=== PATIENT | female | born 1955 ===

== ENCOUNTER 2017-05-17 15:09 | Inpatient (IN) | payer MEDICAID, OTHER ==
[~2017-05-17] VITALS: Ht 152.4 cm; Wt 99.4 kg
[2017-05-17] MEDS ORDERED: SODIUM CHLORIDE 0.9% 1,000 ML IV ONE (15:18)
[2017-05-17] MEDS ORDERED: SODIUM CHLORIDE FLUSH 10ML SYR IVF ONE (15:30)
[2017-05-17] MEDS ORDERED: SODIUM CHLORIDE 0.9% 1,000ML IVBOLUS ONE ×2 (15:30→16:30)
[2017-05-17 15:45] LABS: BASOPHILS # (AUTO) 0.02 x10^3/uL (0-0.1); BASOPHILS % (AUTO) 0 % (0-1); EOSINOPHILS % (AUTO) 0 % (1-7); LYMPHOCYTES # (AUTO) 0.88 x10^3/uL (1-3.4); LYMPHOCYTES % (AUTO) 16 % (22-44); MD NO; MEAN CORPUSCULAR HEMOGLOBIN 26.9 pg (27.0-34.8); MEAN CORPUSCULAR HGB CONC 31.7 g/dL (32.4-35.8); MEAN PLATELET VOLUME 8.2 fL (7.4-10.4); MONOCYTES # (AUTO) 0.83 x10^3/uL (0.2-0.8); MONOCYTES % (AUTO) 15 % (2-9); NEUTROPHILS # (AUTO) 3.92 x10^3/uL (1.8-6.8); NEUTROPHILS % (AUTO) 69 % (42-75); PLATELET COUNT 125 x10^3/uL (130-400); RED BLOOD COUNT 3.82 x10^6/uL (3.82-5.3)
[2017-05-17 15:52] LABS: INTERNATIONAL NORMALIZED RATIO 1.27 (0.93-1.1); PROTHROMBIN TIME 13.1 Seconds (9.6-11.5)
[2017-05-17 15:55] LABS: ALANINE AMINOTRANSFERASE 42 U/L (12-78); ALBUMIN 2.5 g/dL (3.4-5.0); ANION GAP 15 mmol/L (5-15); CALCIUM 7.8 mg/dL (8.5-10.1); CHLORIDE 108 mmol/L (98-107)
[2017-05-17 15:58] LABS: ALKALINE PHOSPHATASE 164 U/L (45-117); BILIRUBIN,TOTAL 1.3 mg/dL (0.2-1.0); CREATINE KINASE, TOTAL 937 U/L (26-192); CREATININE 0.52 mg/dL (0.55-1.02); TOTAL PROTEIN 7.9 g/dL (6.4-8.2); TROPONIN I 0.054 ng/mL (0.000-0.045)
[2017-05-17 16:01] LABS: ACETAMINOPHEN < 2 mcg/mL (10-30); SALICYLATE LEVEL < 1.7 mg/dL (2.8-20.0)
[2017-05-17] MEDS ORDERED: DOCUSATE 100 MG CAPSULE PO PRN (16:30)
[2017-05-17] MEDS ORDERED: LORazepam 1MG TABLET PO PRN ×2 (16:30)
[2017-05-17] MEDS ORDERED: OXYcodone IR 5MG TABLET PO PRN (16:30)
[2017-05-17] MEDS ORDERED: LORazepam 2 MG/ML, 1ML IVPush PRN (16:30)
[2017-05-17] MEDS ORDERED: morphine SULFATE 10 MG/ML, 1ML IVPush PRN (16:30)
[2017-05-17] MEDS ORDERED: POLYETHYLENE GLYCOL 17 GM PACKET PO PRN (16:30)
[2017-05-17] MEDS: PLEASE ENTER ALLERGIES MC SCH (16:30)
[2017-05-17] MEDS ORDERED: CEFTRIAXONE PMX 1GM/50ML 50 ML IV SCH (16:30)
[2017-05-17] MEDS ORDERED: LORazepam 2 MG/ML, 1ML IV PRN ×3 (16:30)
[2017-05-17] MEDS ORDERED: LORazepam 0.5MG TABLET PO PRN (16:30)
[2017-05-17] MEDS ORDERED: ONDANSETRON 2MG/ML, 2ML IVPush PRN (16:30)
[2017-05-17] MEDS ORDERED: ACETAMINOPHEN 325 MG TABLET PO PRN (16:30)
[2017-05-17] MEDS ORDERED: CEFTRIAXONE PMX 1GM/50ML 50 ML ONE (16:43)
[2017-05-17] MEDS ORDERED: NS + 20MEQ KCL 1,000 ML IV ONE (17:43)
[2017-05-17] MEDS: NS + 20MEQ KCL 1,000 ML IV SCH ×2 (17:48→17:53)
[2017-05-17] MEDS ORDERED: THIAMINE 100 MG/ML, 2ML IM ONE (18:00)
[2017-05-17] MEDS: SODIUM CHLORIDE 0.9% 1,000 ML IV SCH (18:30)
[2017-05-17] MEDS ORDERED: THIAMINE 100 MG, FOLIC ACID 1 MG, MVI ADULT 10 ML in SODIUM CHLORIDE 0.9% 1,000 ML IV SCH (18:30)
[2017-05-17] MEDS ORDERED: PIPERACILLIN/TAZO/PMX 3.375GM 50 ML IV SCH (18:30)
[2017-05-17] MEDS ORDERED: VANCOMYCIN PER PHARMACY MC PRN (18:30)
[2017-05-17] MEDS ORDERED: PIPERACILLIN/TAZO/PMX 3.375GM 50 ML ONE (18:41)
[2017-05-17 19:15] LABS: RAPID INFLUENZA A Negative (Negative); RAPID INFLUENZA B Negative (Negative)
[2017-05-17 20:20] VITALS: BP 106/50
[2017-05-17] MEDS ORDERED: PHARMACOKINETIC CONSULTATION MC ONE (20:30)
[2017-05-17] MEDS ORDERED: VANCOMYCIN 1,800 MG in SODIUM CHLORIDE 0.9% 250 ML IV ONE (20:30)
[2017-05-17] MEDS ORDERED: PHARMACOKINETIC MONITORING MC PRN (20:30)
[2017-05-17] MEDS: LACTULOSE 20 GM/30 ML UDC PO SCH ×2 (21:00→21:16)
[2017-05-17] MEDS: FAMOTIDINE 20 MG TABLET PO SCH (21:16)
[2017-05-17 21:56] LABS: TROPONIN I 0.155 ng/mL (0.000-0.045)
[2017-05-18 00:21] LABS: MICROSCOPIC INDICATED
[2017-05-18 00:29] LABS: AMPHETAMINE SCREEN, URINE Negative (Negative); BARBITURATE SCREEN, URINE Negative (Negative); BENZODIAZEPINE SCREEN, URINE Negative (Negative); CANNABINOID SCREEN, URINE Negative (Negative); COCAINE SCREEN, URINE Negative (Negative); METHADONE SCREEN, URINE Negative (Negative); OPIATE SCREEN, URINE Negative (Negative)
[2017-05-18] MEDS: PLEASE ENTER ALLERGIES MC SCH (00:30)
[2017-05-18 00:33] LABS: CULTURE INDICATED? NO
[2017-05-18] MEDS: SODIUM CHLORIDE 0.9% 1,000 ML IV SCH (02:30)
[2017-05-18 04:00] VITALS: BP 116/66
[2017-05-18] MEDS: PIPERACILLIN/TAZO/PMX 2.25GM 50 ML IV SCH ×2 (04:04→12:47)
[2017-05-18 04:29] LABS: ANION GAP 11 mmol/L (5-15); CALCIUM 7.2 mg/dL (8.5-10.1); CHLORIDE 110 mmol/L (98-107); CREATININE 0.53 mg/dL (0.55-1.02)
[2017-05-18 04:32] LABS: TROPONIN I 0.198 ng/mL (0.000-0.045)
[2017-05-18] MEDS: NS + 20MEQ KCL 1,000 ML IV SCH (06:21)
[2017-05-18] MEDS ORDERED: THIAMINE 100MG TABLET PO SCH (09:00)
[2017-05-18] MEDS ORDERED: FOLIC ACID 1 MG TABLET PO SCH (09:00)
[2017-05-18] MEDS ORDERED: MAGNESIUM SULFATE PMX 4GM/100M 100 ML IV ONE (09:30)
[2017-05-18] MEDS: LACTULOSE 20 GM/30 ML UDC PO SCH ×3 (10:23→20:20)
[2017-05-18] MEDS: FAMOTIDINE 20 MG TABLET PO SCH (10:25)
[2017-05-18] MEDS: ENOXAPARIN 40 MG/0.4 ML SQ SCH (10:25)
[2017-05-18] MEDS: MULTIVITAMIN 1 TABLET PO SCH (10:26)
[2017-05-18] MEDS ORDERED: LORazepam 2 MG/ML, 1ML IVPush PRN (10:30)
[2017-05-18 10:51] LABS: MEAN CORPUSCULAR HEMOGLOBIN 27.7 pg (27.0-34.8); MEAN CORPUSCULAR HGB CONC 33.7 g/dL (32.4-35.8); MEAN CORPUSCULAR VOLUME 82.1 fL (80-100); MEAN PLATELET VOLUME 7.9 fL (7.4-10.4); PLATELET COUNT 69 x10^3/uL (130-400)
[2017-05-18 10:53] LABS: BASOPHILS # (AUTO) 0.01 x10^3/uL (0-0.1); BASOPHILS % (AUTO) 0 % (0-1); EOSINOPHILS # (AUTO) 0.04 x10^3/uL (0-0.4); EOSINOPHILS % (AUTO) 1 % (1-7); LYMPHOCYTES # (AUTO) 0.49 x10^3/uL (1-3.4); LYMPHOCYTES % (AUTO) 9 % (22-44); MD MORPH REVIEW ONLY; MONOCYTES % (AUTO) 15 % (2-9); NEUTROPHILS # (AUTO) 3.91 x10^3/uL (1.8-6.8); NEUTROPHILS % (AUTO) 75 % (42-75)
[2017-05-18 10:54] LABS: ANISOCYTOSIS 1+; MICROCYTOSIS 1+
[2017-05-18 10:55] LABS: <PLATELET ESTIMATE> DECREASED; <PLT MORPHOLOGY> NORMAL PLT MORPH; POLYCHROMASIA 1+
[2017-05-18] MEDS: THIAMINE 100MG TABLET PO SCH (12:09)
[2017-05-18] MEDS: FOLIC ACID 1 MG TABLET PO SCH (12:11)
[2017-05-18 14:20] VITALS: BP 152/80
[2017-05-18] MEDS: VANCOMYCIN 1,800 MG in SODIUM CHLORIDE 0.9% 250 ML IV SCH (18:09)
[2017-05-18 20:13] VITALS: BP 142/62
[2017-05-18] MEDS: PIPERACILLIN/TAZO/PMX 3.375GM 50 ML IV SCH (20:20)
[2017-05-19] MEDS: PIPERACILLIN/TAZO/PMX 3.375GM 50 ML IV SCH ×4 (02:36→20:33)
[2017-05-19 05:19] VITALS: BP 121/65
[2017-05-19 05:27] LABS: ALANINE AMINOTRANSFERASE 42 U/L (12-78); ALBUMIN 2.2 g/dL (3.4-5.0); ANION GAP 8 mmol/L (5-15); CALCIUM 7.4 mg/dL (8.5-10.1); CHLORIDE 108 mmol/L (98-107); CREATININE 0.73 mg/dL (0.55-1.02)
[2017-05-19 05:28] LABS: MEAN CORPUSCULAR HEMOGLOBIN 28.2 pg (27.0-34.8); MEAN CORPUSCULAR VOLUME 82.7 fL (80-100); RED BLOOD COUNT 3.37 x10^6/uL (3.82-5.3)
[2017-05-19 05:29] LABS: ALKALINE PHOSPHATASE 129 U/L (45-117); BILIRUBIN,TOTAL 1.5 mg/dL (0.2-1.0); CREATINE KINASE, TOTAL 520 U/L (26-192); TOTAL PROTEIN 6.7 g/dL (6.4-8.2)
[2017-05-19 06:10] LABS: BASOPHILS % (AUTO) 0 % (0-1); EOSINOPHILS # (AUTO) 0.01 x10^3/uL (0-0.4); EOSINOPHILS % (AUTO) 0 % (1-7); LYMPHOCYTES # (AUTO) 0.28 x10^3/uL (1-3.4); LYMPHOCYTES % (AUTO) 10 % (22-44); MD SCAN; MEAN PLATELET VOLUME 8.1 fL (7.4-10.4); MONOCYTES # (AUTO) 0.46 x10^3/uL (0.2-0.8); MONOCYTES % (AUTO) 17 % (2-9); NEUTROPHILS # (AUTO) 2.02 x10^3/uL (1.8-6.8); NEUTROPHILS % (AUTO) 73 % (42-75); PLATELET COUNT 61 x10^3/uL (130-400)
[2017-05-19 07:30] VITALS: BP 128/72
[2017-05-19] MEDS: MULTIVITAMIN 1 TABLET PO SCH (08:52)
[2017-05-19] MEDS: FOLIC ACID 1 MG TABLET PO SCH (08:52)
[2017-05-19] MEDS: THIAMINE 100MG TABLET PO SCH (08:52)
[2017-05-19] MEDS: LACTULOSE 20 GM/30 ML UDC PO SCH ×3 (08:52→20:33)
[2017-05-19] MEDS: FAMOTIDINE 20 MG TABLET PO SCH ×2 (08:52→20:34)
[2017-05-19] MEDS: ENOXAPARIN 40 MG/0.4 ML SQ SCH (08:53)
[2017-05-19] MEDS ORDERED: POTASSIUM PHOSPHATE 44 MEQ in SODIUM CHLORIDE 0.9% 500 ML IV ONE (10:00)
[2017-05-19] MEDS: VANCOMYCIN 1,800 MG in SODIUM CHLORIDE 0.9% 250 ML IV SCH (12:42)
[2017-05-19 13:10] VITALS: BP 118/76
[2017-05-19 19:37] VITALS: BP 125/81
[2017-05-20] MEDS: PIPERACILLIN/TAZO/PMX 3.375GM 50 ML IV SCH ×4 (02:19→20:40)
[2017-05-20 03:01] VITALS: BP 116/70
[2017-05-20 05:17] LABS: CHLORIDE 111 mmol/L (98-107)
[2017-05-20 05:29] LABS: ALANINE AMINOTRANSFERASE 34 U/L (12-78); ALBUMIN 1.9 g/dL (3.4-5.0); ALKALINE PHOSPHATASE 103 U/L (45-117); ANION GAP 9 mmol/L (5-15); BILIRUBIN,TOTAL 1.3 mg/dL (0.2-1.0); CALCIUM 7.1 mg/dL (8.5-10.1); CREATININE 1.21 mg/dL (0.55-1.02)
[2017-05-20 05:32] LABS: MEAN CORPUSCULAR HEMOGLOBIN 27.4 pg (27.0-34.8); MEAN CORPUSCULAR VOLUME 83.1 fL (80-100); MEAN PLATELET VOLUME 8.3 fL (7.4-10.4); PLATELET COUNT 59 x10^3/uL (130-400); RED BLOOD COUNT 3.41 x10^6/uL (3.82-5.3); RED CELL DISTRIBUTION WIDTH 20.1 % (9.6-15.2)
[2017-05-20] MEDS: VANCOMYCIN 1,800 MG in SODIUM CHLORIDE 0.9% 250 ML IV SCH (05:47)
[2017-05-20 06:16] LABS: MD YES
[2017-05-20 06:19] LABS: EOS#(MANUAL) 0.34 x10^3/uL (0.0-0.4); EOS% (MANUAL) 10 % (1-7); LYMPH#(MANUAL) 0.71 x10^3/uL (1-3.4); LYMPHS% (MANUAL) 21 % (22-44); MONOS#(MANUAL) 0.51 x10^3/uL (0.3-2.7); MONOS% (MANUAL) 15 % (2-9); SEG#(MANUAL) 1.84 x10^3/uL (1.8-6.8); SEGS% (MANUAL) 54 % (42-75)
[2017-05-20 06:20] LABS: ANISOCYTOSIS 1+; HYPOCHROMIA 1+; MICROCYTOSIS 1+; OVALOCYTES 1+; POLYCHROMASIA 1+
[2017-05-20 06:21] LABS: <PLATELET ESTIMATE> DECREASED; <PLT MORPHOLOGY> NORMAL PLT MORPH
[2017-05-20 07:45] VITALS: BP 109/70
[2017-05-20] MEDS: FAMOTIDINE 20 MG TABLET PO SCH ×2 (08:07→20:41)
[2017-05-20] MEDS: MULTIVITAMIN 1 TABLET PO SCH (08:07)
[2017-05-20] MEDS: FOLIC ACID 1 MG TABLET PO SCH (08:07)
[2017-05-20] MEDS: THIAMINE 100MG TABLET PO SCH (08:07)
[2017-05-20] MEDS: LACTULOSE 20 GM/30 ML UDC PO SCH ×3 (08:07→20:40)
[2017-05-20] MEDS: ENOXAPARIN 40 MG/0.4 ML SQ SCH (09:23)
[2017-05-20] MEDS ORDERED: POTASSIUM CHLORIDE 20 MEQ TAB.ER.PRT PO ONE (09:30)
[2017-05-20 09:33] LABS: HIT RESULT POSITIVE (NEGATIVE)
[2017-05-20 13:43] VITALS: BP 116/76
[2017-05-20 20:00] VITALS: BP 110/74
[2017-05-21 00:52] VITALS: BP 103/66
[2017-05-21] MEDS: PIPERACILLIN/TAZO/PMX 3.375GM 50 ML IV SCH ×2 (02:29→09:55)
[2017-05-21 05:47] LABS: MEAN CORPUSCULAR HEMOGLOBIN 27.4 pg (27.0-34.8); MEAN CORPUSCULAR HGB CONC 32.6 g/dL (32.4-35.8); MEAN CORPUSCULAR VOLUME 84.1 fL (80-100); MEAN PLATELET VOLUME 8.2 fL (7.4-10.4); PLATELET COUNT 66 x10^3/uL (130-400); RED BLOOD COUNT 3.44 x10^6/uL (3.82-5.3)
[2017-05-21 05:51] LABS: ALANINE AMINOTRANSFERASE 31 U/L (12-78); ALBUMIN 1.8 g/dL (3.4-5.0); ANION GAP 6 mmol/L (5-15); CALCIUM 7.1 mg/dL (8.5-10.1); CHLORIDE 112 mmol/L (98-107); CREATININE 1.34 mg/dL (0.55-1.02)
[2017-05-21 05:53] LABS: ALKALINE PHOSPHATASE 100 U/L (45-117); BILIRUBIN,TOTAL 1.4 mg/dL (0.2-1.0); TOTAL PROTEIN 5.7 g/dL (6.4-8.2)
[2017-05-21 06:20] LABS: MD YES
[2017-05-21 06:22] LABS: EOS#(MANUAL) 0.42 x10^3/uL (0.0-0.4); EOS% (MANUAL) 9 % (1-7); LYMPH#(MANUAL) 0.85 x10^3/uL (1-3.4); LYMPHS% (MANUAL) 18 % (22-44); MONOS#(MANUAL) 0.71 x10^3/uL (0.3-2.7); MONOS% (MANUAL) 15 % (2-9); SEG#(MANUAL) 2.73 x10^3/uL (1.8-6.8); SEGS% (MANUAL) 58 % (42-75)
[2017-05-21 06:23] LABS: <PLATELET ESTIMATE> DECREASED; ANISOCYTOSIS 1+; POLYCHROMASIA 1+
[2017-05-21 06:24] LABS: <PLT MORPHOLOGY> NORMAL PLT MORPH
[2017-05-21] MEDS: ENOXAPARIN 40 MG/0.4 ML SQ SCH (09:30)
[2017-05-21] MEDS: LACTULOSE 20 GM/30 ML UDC PO SCH ×2 (09:55→19:50)
[2017-05-21] MEDS: THIAMINE 100MG TABLET PO SCH (09:55)
[2017-05-21] MEDS: MULTIVITAMIN 1 TABLET PO SCH (09:55)
[2017-05-21] MEDS: FOLIC ACID 1 MG TABLET PO SCH (09:55)
[2017-05-21] MEDS: FAMOTIDINE 20 MG TABLET PO SCH ×2 (09:55→19:54)
[2017-05-21 10:00] VITALS: BP 115/68
[2017-05-21] MEDS ORDERED: SODIUM CHLORIDE 0.9%, 500ML IVBOLUS ONE (12:30)
[2017-05-21 13:00] LABS: CLOSTRIDIUM DIFFICILE ANTIGEN NEGATIVE; CLOSTRIDIUM DIFFICILE TOXIN NEGATIVE (Negative)
[2017-05-21] MEDS: LACTOBACILLUS CHEW TABLET PO SCH ×3 (13:00→19:49)
[2017-05-21] MEDS: FLUTICASONE/VILANTEROL 200-25MCG/INH INH SCH (13:00)
[2017-05-21] MEDS: ALBUMIN HUMAN 25% 100 ML IV SCH ×2 (13:01→19:41)
[2017-05-21 14:50] VITALS: BP 94/62
[2017-05-21] MEDS ORDERED: ALBUTEROL SULFATE 2.5 MG/3 ML NPPB PRN (15:30)
[2017-05-21 19:25] VITALS: BP 116/75
[2017-05-22] MEDS: ALBUMIN HUMAN 25% 100 ML IV SCH ×2 (01:10→08:22)
[2017-05-22 02:24] VITALS: BP 114/69
[2017-05-22 07:19] VITALS: BP 124/77
[2017-05-22] MEDS: FLUTICASONE/VILANTEROL 200-25MCG/INH INH SCH (08:21)
[2017-05-22] MEDS: FAMOTIDINE 20 MG TABLET PO SCH (08:22)
[2017-05-22] MEDS: LACTULOSE 20 GM/30 ML UDC PO SCH (08:22)
[2017-05-22] MEDS: LACTOBACILLUS CHEW TABLET PO SCH (08:23)
[2017-05-22] MEDS: FOLIC ACID 1 MG TABLET PO SCH (08:23)
[2017-05-22] MEDS: THIAMINE 100MG TABLET PO SCH (08:23)
[2017-05-22] MEDS: MULTIVITAMIN 1 TABLET PO SCH (08:23)
[2017-05-22] MEDS ORDERED: FOLI-17 PO (12:43)
[2017-05-22] MEDS ORDERED: MULT1TAB60 PO (12:43)
[2017-05-22] MEDS ORDERED: LACT20SO13 PO (12:43)
[2017-05-22] MEDS ORDERED: FLUT1BLS INH (12:43)
[2017-05-22] MEDS ORDERED: FAMO20TA7 PO (12:43)
[2017-05-22] MEDS ORDERED: THIA100T6 PO (12:43)
[2017-05-22] MEDS ORDERED: ACID1TAB7 PO (12:43)
[2017-05-22] MEDS ORDERED: FLU VACC QS2017-18 (36MOS+) UP/PF 0.5 ML IM-VACC ONE ×3 (13:30→14:00)
[2017-05-22] MEDS ORDERED: PNEUMOCOCCAL 23 VACCINE IM-VACC ONE (13:30)
== END 2017-05-22 15:00 | disposition home or self-care (01) | DRG 432 ==
LOC: SUATTDRO 16:01 → ED 17:11 → MERGE 17:15 → EDBD 17:15 → EDIP 17:15 → CCU 19:30 → 4WST 05-18 11:57
PROVIDERS: ADMIT Family Medicine; ATTEND Family Medicine
PROC: 0T9B70Z Drainage of Bladder with Drainage Device, Via Natural or Artificial Opening (ICD-10-PCS; principal; 2017-05-18)
DX: K70.41 Alcoholic hepatic failure with coma (principal); J96.00 Acute respiratory failure, unspecified whether with hypoxia or hypercapnia; E43 Unspecified severe protein-calorie malnutrition; D69.59 Other secondary thrombocytopenia; E87.2 Acidosis; T68.XXXA Hypothermia, initial encounter; I95.9 Hypotension, unspecified; E83.39 Other disorders of phosphorus metabolism; E83.42 Hypomagnesemia; I24.8 Other forms of acute ischemic heart disease; Z68.42 Body mass index [BMI] 45.0-49.9, adult; I10 Essential (primary) hypertension; I48.91 Unspecified atrial fibrillation; I73.9 Peripheral vascular disease, unspecified; J45.909 Unspecified asthma, uncomplicated; E87.6 Hypokalemia; F10.229 Alcohol dependence with intoxication, unspecified; Z59.0 Homelessness; X31.XXXA Exposure to excessive natural cold, initial encounter; Z91.14 Patient's other noncompliance with medication regimen; Z23 Encounter for immunization
CPT/HCPCS: 36415; 36600; 51702; 70450; 71045; 71046; 80048; 80053; 80307; 80329; 81001; 82140; 82533; 82550; 82803; 83605; 83735; 84100; 84484; 85025; 85610; 85730; 86022; 87040; 87081; 87324; 87400; 90686; 90732; 93005; 93306; 93970; 96361; 96365; 96367; J0696; J1650; J2405; J2543; J3370; J3411; J3480; P9047; G0480; J3475; J7030; J7040; J7050

== ENCOUNTER 2017-06-07 18:21 | Emergency (ER) | payer MEDICAID ==
[~2017-06-07] VITALS: Ht 154.9 cm; Wt 80.0 kg
[~2017-06-07 18:21] MED LIST: ACID1TAB7 PO; CEFD300C37 PO; FAMO20TA7 PO; FLUT1BLS INH; FOLI-17 PO; LACT20SO13 PO; MULT1TAB60 PO; PRED20TA PO; THIA100T6 PO
[2017-06-07 18:50] VITALS: BP 142/72
[2017-06-07] MEDS ORDERED: ALBUTEROL/IPRATROPIUM 2.5MG/0.5MG, 3 ML ONE ×2 (18:57→20:13)
[2017-06-07] MEDS ORDERED: SODIUM CHLORIDE FLUSH 10ML SYR IVF ONE (19:00)
[2017-06-07] MEDS: ALBUTEROL/IPRATROPIUM 2.5MG/0.5MG, 3 ML NPPB SCH (19:02)
[2017-06-07 19:11] LABS: BASOPHILS # (AUTO) 0.07 x10^3/uL (0-0.1); BASOPHILS % (AUTO) 1 % (0-1); EOSINOPHILS % (AUTO) 0 % (1-7); LYMPHOCYTES # (AUTO) 0.57 x10^3/uL (1-3.4); LYMPHOCYTES % (AUTO) 8 % (22-44); MD NO; MEAN CORPUSCULAR HEMOGLOBIN 26.7 pg (27.0-34.8); MEAN CORPUSCULAR HGB CONC 31.9 g/dL (32.4-35.8); MEAN CORPUSCULAR VOLUME 83.7 fL (80-100); MEAN PLATELET VOLUME 9.2 fL (7.4-10.4); MONOCYTES # (AUTO) 0.99 x10^3/uL (0.2-0.8); MONOCYTES % (AUTO) 13 % (2-9); NEUTROPHILS # (AUTO) 5.77 x10^3/uL (1.8-6.8); NEUTROPHILS % (AUTO) 78 % (42-75); PLATELET COUNT 209 x10^3/uL (130-400); RED BLOOD COUNT 3.97 x10^6/uL (3.82-5.3); RED CELL DISTRIBUTION WIDTH 20.8 % (9.6-15.2)
[2017-06-07 19:21] LABS: ALBUMIN 2.7 g/dL (3.4-5.0); ANION GAP 7 mmol/L (5-15); CALCIUM 7.9 mg/dL (8.5-10.1); CHLORIDE 111 mmol/L (98-107); CREATININE 0.83 mg/dL (0.55-1.02)
[2017-06-07] MEDS ORDERED: ALBUTEROL/IPRATROPIUM 2.5MG/0.5MG, 3 ML NPPB ONE (20:00)
== END 2017-06-07 21:28 | disposition home or self-care (01) ==
LOC: ED 19:00
DX: J44.1 Chronic obstructive pulmonary disease with (acute) exacerbation (principal); Z59.0 Homelessness
CPT/HCPCS: 36415; 71045; 80048; 82040; 83880; 85025; 93005; 94640; 99285; J7512; J7620

== ENCOUNTER 2017-06-11 11:17 | Emergency (ER) | payer MEDICAID ==
[~2017-06-11] VITALS: Ht 154.9 cm; Wt 99.5 kg
[2017-06-11 15:23] LABS: ALBUMIN 2.8 g/dL (3.4-5.0); ANION GAP 9 mmol/L (5-15); CALCIUM 8.3 mg/dL (8.5-10.1); CHLORIDE 108 mmol/L (98-107)
[2017-06-11 15:27] LABS: ALANINE AMINOTRANSFERASE 91 U/L (12-78); ALKALINE PHOSPHATASE 189 U/L (45-117); BILIRUBIN,TOTAL 2.1 mg/dL (0.2-1.0); TOTAL PROTEIN 7.5 g/dL (6.4-8.2)
[2017-06-11 15:47] LABS: MEAN CORPUSCULAR VOLUME 84.4 fL (80-100); MEAN PLATELET VOLUME 9.6 fL (7.4-10.4); PLATELET COUNT 155 x10^3/uL (130-400); RED BLOOD COUNT 4.02 x10^6/uL (3.82-5.3); RED CELL DISTRIBUTION WIDTH 21.2 % (9.6-15.2)
[2017-06-11 16:16] LABS: BASOPHILS % (AUTO) 0 % (0-1); EOSINOPHILS % (AUTO) 0 % (1-7); LYMPHOCYTES % (AUTO) 2 % (22-44); MD SCAN; MONOCYTES # (AUTO) 0.23 x10^3/uL (0.2-0.8); MONOCYTES % (AUTO) 2 % (2-9); NEUTROPHILS # (AUTO) 9.54 x10^3/uL (1.8-6.8); NEUTROPHILS % (AUTO) 96 % (42-75)
[2017-06-11] MEDS ORDERED: LIDOCAINE 1%, 20ML ONE (17:04)
[2017-06-11 18:12] VITALS: BP 154/75
== END 2017-06-11 18:50 | disposition home or self-care (01) ==
LOC: ED 18:37
DX: K70.31 Alcoholic cirrhosis of liver with ascites (principal); J44.0 Chronic obstructive pulmonary disease with (acute) lower respiratory infection; I50.9 Heart failure, unspecified
CPT/HCPCS: 36415; 49083; 74022; 80053; 83690; 85025; 88112; 88305; 93005; 99285; J3490

== ENCOUNTER 2017-06-14 20:38 | Emergency (ER) | payer MEDICAID ==
[~2017-06-14] VITALS: Ht 154.9 cm; Wt 99.2 kg
[2017-06-14 20:46] VITALS: BP 152/87
== END 2017-06-14 22:29 | disposition home or self-care (01) ==
LOC: ED 22:23
DX: Z76.0 Encounter for issue of repeat prescription (principal); J44.9 Chronic obstructive pulmonary disease, unspecified; I50.9 Heart failure, unspecified; F17.210 Nicotine dependence, cigarettes, uncomplicated
CPT/HCPCS: 99283

== ENCOUNTER 2017-08-26 21:25 | Emergency (ER) | payer MEDICAID ==
[~2017-08-26] VITALS: Ht 170.2 cm; Wt 110.0 kg
[2017-08-27 01:06] VITALS: BP 110/72
== END 2017-08-27 04:05 | disposition home or self-care (01) ==
LOC: ED 22:00
DX: F10.129 Alcohol abuse with intoxication, unspecified (principal); F19.10 Other psychoactive substance abuse, uncomplicated; I11.0 Hypertensive heart disease with heart failure; I50.9 Heart failure, unspecified; J44.9 Chronic obstructive pulmonary disease, unspecified; Z72.9 Problem related to lifestyle, unspecified
CPT/HCPCS: 99283

== ENCOUNTER 2017-09-01 23:21 | Emergency (ER) | payer MEDICAID ==
[~2017-09-01] VITALS: Ht 154.9 cm; Wt 88.3 kg
[2017-09-02] MEDS ORDERED: ALBUTEROL/IPRATROPIUM 2.5MG/0.5MG, 3 ML ONE (00:46)
[2017-09-02 01:00] LABS: MEAN CORPUSCULAR HEMOGLOBIN 27.4 pg (27.0-34.8); MEAN CORPUSCULAR HGB CONC 33.2 g/dL (32.4-35.8); MEAN CORPUSCULAR VOLUME 82.5 fL (80-100); PLATELET COUNT 68 x10^3/uL (130-400); RED CELL DISTRIBUTION WIDTH 21.4 % (9.6-15.2)
[2017-09-02] MEDS ORDERED: ALBUTEROL SULFATE 2.5 MG/3 ML NPPB ONE (01:00)
[2017-09-02 01:04] LABS: INTERNATIONAL NORMALIZED RATIO 1.52 (0.93-1.1); PROTHROMBIN TIME 15.7 Seconds (9.6-11.5)
[2017-09-02 01:05] LABS: CULTURE INDICATED? YES; MICROSCOPIC INDICATED
[2017-09-02 01:05] LABS: ALANINE AMINOTRANSFERASE 34 U/L (12-78); ALBUMIN 1.8 g/dL (3.4-5.0); ANION GAP 8 mmol/L (5-15); CALCIUM 7.7 mg/dL (8.5-10.1); CHLORIDE 107 mmol/L (98-107); CREATININE 0.85 mg/dL (0.55-1.02)
[2017-09-02 01:07] LABS: ALKALINE PHOSPHATASE 127 U/L (45-117); BILIRUBIN,TOTAL 2.2 mg/dL (0.2-1.0); TOTAL PROTEIN 7.1 g/dL (6.4-8.2)
[2017-09-02 01:45] LABS: BASOPHILS # (AUTO) 0.02 x10^3/uL (0-0.1); BASOPHILS % (AUTO) 0 % (0-1); EOSINOPHILS # (AUTO) 0.07 x10^3/uL (0-0.4); EOSINOPHILS % (AUTO) 1 % (1-7); LYMPHOCYTES # (AUTO) 0.41 x10^3/uL (1-3.4); LYMPHOCYTES % (AUTO) 7 % (22-44); MD SCAN; MONOCYTES # (AUTO) 0.78 x10^3/uL (0.2-0.8); MONOCYTES % (AUTO) 14 % (2-9); NEUTROPHILS % (AUTO) 77 % (42-75)
[2017-09-02] MEDS ORDERED: LIDOCAINE-MPF 1%, 5ML ONE (02:17)
[2017-09-02] MEDS ORDERED: LIDOCAINE-MPF 1%, 5ML INFIL ONE (02:30)
[2017-09-02 04:30] VITALS: BP 116/67
== END 2017-09-02 04:32 | disposition home or self-care (01) ==
LOC: ED 23:59
DX: K74.60 Unspecified cirrhosis of liver (principal); R10.84 Generalized abdominal pain; J44.9 Chronic obstructive pulmonary disease, unspecified; I50.9 Heart failure, unspecified
CPT/HCPCS: 36415; 49083; 80053; 81001; 83690; 85025; 85610; 85730; 87086; 93005; 94640; 99285; J7613

== ENCOUNTER 2017-09-04 05:47 | Emergency (ER) | payer MEDICAID ==
[~2017-09-04] VITALS: Ht 154.9 cm; Wt 78.0 kg
[2017-09-04 06:43] LABS: MEAN CORPUSCULAR HEMOGLOBIN 27.7 pg (27.0-34.8); MEAN CORPUSCULAR HGB CONC 33.8 g/dL (32.4-35.8); RED BLOOD COUNT 3.85 x10^6/uL (3.82-5.3)
[2017-09-04 06:53] LABS: ALBUMIN 1.7 g/dL (3.4-5.0); ANION GAP 8 mmol/L (5-15); CALCIUM 7.5 mg/dL (8.5-10.1); CHLORIDE 106 mmol/L (98-107)
[2017-09-04 07:00] LABS: ALANINE AMINOTRANSFERASE 34 U/L (12-78); ALKALINE PHOSPHATASE 182 U/L (45-117); BILIRUBIN,TOTAL 1.4 mg/dL (0.2-1.0); CREATININE 0.63 mg/dL (0.55-1.02)
[2017-09-04 07:05] LABS: MD YES; MEAN PLATELET VOLUME 8.1 fL (7.4-10.4); PLATELET COUNT 72 x10^3/uL (130-400)
[2017-09-04 07:11] LABS: EOS#(MANUAL) 0.41 x10^3/uL (0.0-0.4); EOS% (MANUAL) 8 % (1-7); LYMPH#(MANUAL) 1.07 x10^3/uL (1-3.4); LYMPHS% (MANUAL) 21 % (22-44); MONOS#(MANUAL) 0.82 x10^3/uL (0.3-2.7); MONOS% (MANUAL) 16 % (2-9); SEG#(MANUAL) 2.81 x10^3/uL (1.8-6.8); SEGS% (MANUAL) 55 % (42-75)
[2017-09-04 07:12] LABS: ANISOCYTOSIS 1+; POLYCHROMASIA 1+
[2017-09-04 07:13] LABS: <PLATELET ESTIMATE> DECREASED; <PLT MORPHOLOGY> NORMAL PLT MORPH
[2017-09-04 12:15] LABS: MICROSCOPIC INDICATED
[2017-09-04 12:21] LABS: CULTURE INDICATED? YES
[2017-09-04] MEDS ORDERED: MAGNESIUM CITRATE 300ML ORAL SOL ONE (12:58)
[2017-09-04] MEDS ORDERED: MAGNESIUM CITRATE 300ML ORAL SOL PO PRN (13:00)
[2017-09-04 13:18] VITALS: BP 112/72
== END 2017-09-04 13:20 | disposition home or self-care (01) ==
LOC: ED 07:49
DX: K59.00 Constipation, unspecified (principal); F10.229 Alcohol dependence with intoxication, unspecified; Z72.89 Other problems related to lifestyle; J44.9 Chronic obstructive pulmonary disease, unspecified; I50.9 Heart failure, unspecified; R82.99 Other abnormal findings in urine
CPT/HCPCS: 36415; 74021; 80053; 81001; 83690; 84703; 85025; 87086; 99285

== ENCOUNTER 2017-09-07 00:42 | Emergency (ER) | payer MEDICAID ==
[~2017-09-07] VITALS: Ht 152.4 cm; Wt 68.0 kg
[2017-09-07 01:08] VITALS: BP 121/67
== END 2017-09-07 01:26 | disposition home or self-care (01) ==
LOC: ED 01:20
DX: F10.229 Alcohol dependence with intoxication, unspecified (principal); J44.9 Chronic obstructive pulmonary disease, unspecified; I50.9 Heart failure, unspecified
CPT/HCPCS: 99283

== ENCOUNTER → 2017-09-20 | Outpatient (CLI) | payer MEDICAID | END | disposition home or self-care (01) | LOC: LDOP 22:46 | PROVIDERS: ATTEND Obstetrics & Gynecology | DX: R18.8 Other ascites | CPT/HCPCS: 76705 ==

== ENCOUNTER 2017-09-25 03:34 | Emergency (ER) | payer MEDICAID ==
[~2017-09-25] VITALS: Ht 149.9 cm; Wt 81.8 kg
[2017-09-25 06:25] VITALS: BP 99/66
== END 2017-09-25 06:59 | disposition home or self-care (01) ==
LOC: ED 04:23
DX: G89.29 Other chronic pain (principal); R10.84 Generalized abdominal pain; I50.9 Heart failure, unspecified; F10.129 Alcohol abuse with intoxication, unspecified; J44.9 Chronic obstructive pulmonary disease, unspecified; Z79.899 Other long term (current) drug therapy; Z87.891 Personal history of nicotine dependence
CPT/HCPCS: 36415; 80307; 99283

== ENCOUNTER 2017-09-27 12:29 | Emergency (ER) | payer MEDICAID ==
[2017-09-27] MEDS ORDERED: SODIUM CHLORIDE 0.9% 1,000ML IVBOLUS ONE (13:00)
[2017-09-27 13:18] LABS: INTERNATIONAL NORMALIZED RATIO 1.15 (0.93-1.1); PROTHROMBIN TIME 11.8 Seconds (9.6-11.5)
[2017-09-27 13:23] LABS: ALANINE AMINOTRANSFERASE 44 U/L (12-78); ALBUMIN 1.7 g/dL (3.4-5.0); ANION GAP 8 mmol/L (5-15); CALCIUM 7.2 mg/dL (8.5-10.1); CHLORIDE 112 mmol/L (98-107); CREATININE 0.97 mg/dL (0.55-1.02)
[2017-09-27 13:27] LABS: ALKALINE PHOSPHATASE 225 U/L (45-117); BILIRUBIN,TOTAL 1.2 mg/dL (0.2-1.0); TOTAL PROTEIN 7.2 g/dL (6.4-8.2); TROPONIN I < 0.015 ng/mL (0.000-0.045)
[2017-09-27 13:32] LABS: BASOPHILS # (AUTO) 0.03 x10^3/uL (0-0.1); BASOPHILS % (AUTO) 1 % (0-1); EOSINOPHILS # (AUTO) 0.36 x10^3/uL (0-0.4); EOSINOPHILS % (AUTO) 8 % (1-7); LYMPHOCYTES # (AUTO) 0.94 x10^3/uL (1-3.4); LYMPHOCYTES % (AUTO) 21 % (22-44); MD NO; MEAN CORPUSCULAR VOLUME 84.8 fL (80-100); MEAN PLATELET VOLUME 7.6 fL (7.4-10.4); MONOCYTES % (AUTO) 16 % (2-9); NEUTROPHILS # (AUTO) 2.44 x10^3/uL (1.8-6.8); NEUTROPHILS % (AUTO) 55 % (42-75); PLATELET COUNT 126 x10^3/uL (130-400); RED BLOOD COUNT 3.21 x10^6/uL (3.82-5.3); RED CELL DISTRIBUTION WIDTH 21.8 % (9.6-15.2)
[2017-09-27 20:49] VITALS: BP 98/62
== END 2017-09-27 20:36 | disposition home or self-care (01) ==
LOC: ED 12:35
DX: F10.220 Alcohol dependence with intoxication, uncomplicated (principal); Z72.89 Other problems related to lifestyle; J44.9 Chronic obstructive pulmonary disease, unspecified; I11.0 Hypertensive heart disease with heart failure; I50.9 Heart failure, unspecified; Z79.899 Other long term (current) drug therapy
CPT/HCPCS: 36415; 74021; 76700; 80053; 80307; 83690; 84484; 85025; 85610; 93005; 96360; 96361; 99285; J7030

== ENCOUNTER 2017-10-11 20:19 | Emergency (ER) | payer MEDICAID ==
[~2017-10-11] VITALS: Ht 154.9 cm; Wt 68.0 kg
[2017-10-11 20:26] VITALS: BP 104/72
== END 2017-10-11 22:22 | disposition home or self-care (01) ==
LOC: ED 21:39
DX: R07.89 Other chest pain (principal); F10.20 Alcohol dependence, uncomplicated; F19.10 Other psychoactive substance abuse, uncomplicated; J44.9 Chronic obstructive pulmonary disease, unspecified; I11.0 Hypertensive heart disease with heart failure; I50.9 Heart failure, unspecified; Z72.9 Problem related to lifestyle, unspecified
CPT/HCPCS: 71046; 93005; 99284

== ENCOUNTER 2017-11-07 16:27 | Emergency (ER) | payer MEDICAID ==
[~2017-11-07] VITALS: Ht 154.9 cm; Wt 79.0 kg
[2017-11-07] MEDS ORDERED: SODIUM CHLORIDE 0.9% 1,000ML IVBOLUS ONE (17:00)
[2017-11-07] MEDS ORDERED: SODIUM CHLORIDE FLUSH 10ML SYR IVF ONE (17:00)
[2017-11-07 17:14] LABS: BASOPHILS # (AUTO) 0.07 x10^3/uL (0-0.1); BASOPHILS % (AUTO) 2 % (0-1); EOSINOPHILS % (AUTO) 6 % (1-7); LYMPHOCYTES # (AUTO) 0.91 x10^3/uL (1-3.4); LYMPHOCYTES % (AUTO) 26 % (22-44); MD NO; MEAN CORPUSCULAR HGB CONC 33.1 g/dL (32.4-35.8); MEAN CORPUSCULAR VOLUME 90.6 fL (80-100); MEAN PLATELET VOLUME 6.8 fL (7.4-10.4); MONOCYTES # (AUTO) 0.51 x10^3/uL (0.2-0.8); MONOCYTES % (AUTO) 14 % (2-9); NEUTROPHILS # (AUTO) 1.86 x10^3/uL (1.8-6.8); NEUTROPHILS % (AUTO) 53 % (42-75); PLATELET COUNT 105 x10^3/uL (130-400); RED CELL DISTRIBUTION WIDTH 17.9 % (9.6-15.2)
[2017-11-07 17:23] LABS: INTERNATIONAL NORMALIZED RATIO 1.33 (0.93-1.1); PROTHROMBIN TIME 13.8 Seconds (9.6-11.5)
[2017-11-07 17:27] LABS: ALANINE AMINOTRANSFERASE 26 U/L (12-78); ALBUMIN 2.2 g/dL (3.4-5.0); ANION GAP 9 mmol/L (5-15); CALCIUM 7.4 mg/dL (8.5-10.1); CHLORIDE 111 mmol/L (98-107); CREATININE 0.68 mg/dL (0.55-1.02)
[2017-11-07 17:29] LABS: ALKALINE PHOSPHATASE 150 U/L (45-117); BILIRUBIN,TOTAL 1.8 mg/dL (0.2-1.0); TOTAL PROTEIN 6.8 g/dL (6.4-8.2)
[2017-11-07] MEDS ORDERED: LIDOCAINE-MPF 2% ,5ML ONE (18:36)
[2017-11-07] MEDS ORDERED: LIDOCAINE-MPF 2% ,5ML INFIL ONE (19:00)
[2017-11-07 21:02] LABS: CELLS COUNTED 38
[2017-11-07 21:48] VITALS: BP 107/64
== END 2017-11-07 21:50 | disposition home or self-care (01) ==
LOC: ED 18:44
DX: K70.31 Alcoholic cirrhosis of liver with ascites (principal); F10.20 Alcohol dependence, uncomplicated; J44.9 Chronic obstructive pulmonary disease, unspecified; E78.00 Pure hypercholesterolemia, unspecified; Z86.73 Personal history of transient ischemic attack (TIA), and cerebral infarction without residual deficits; I10 Essential (primary) hypertension; Z72.9 Problem related to lifestyle, unspecified
CPT/HCPCS: 36415; 49083; 74176; 80053; 80307; 82042; 83615; 83690; 85025; 85610; 85730; 87070; 87205; 89051; 93005; 99285; J7030

== ENCOUNTER 2017-11-12 10:55 | Emergency (ER) | payer MEDICAID ==
[~2017-11-12] VITALS: Ht 154.9 cm; Wt 85.0 kg
[2017-11-12 11:07] VITALS: BP 77/37
[2017-11-12] MEDS ORDERED: SODIUM CHLORIDE FLUSH 10ML SYR IVF ONE (11:30)
[2017-11-12] MEDS ORDERED: SODIUM CHLORIDE 0.9% 1,000ML IVBOLUS ONE (11:30)
== END 2017-11-12 12:14 | disposition left against medical advice (07) ==
LOC: ED 11:40
DX: F10.220 Alcohol dependence with intoxication, uncomplicated (principal); E78.00 Pure hypercholesterolemia, unspecified; K70.31 Alcoholic cirrhosis of liver with ascites; I50.9 Heart failure, unspecified; J45.909 Unspecified asthma, uncomplicated; I11.0 Hypertensive heart disease with heart failure; Y90.9 Presence of alcohol in blood, level not specified; Z86.73 Personal history of transient ischemic attack (TIA), and cerebral infarction without residual deficits
CPT/HCPCS: 93005; 99283

== ENCOUNTER 2017-11-24 21:05 | Emergency (ER) | payer MEDICAID ==
[~2017-11-24] VITALS: Ht 162.6 cm; Wt 60.0 kg
[~2017-11-24 21:05] MED LIST changes: -THIA100T6 PO; +THIA100T67 PO
[2017-11-24] MEDS ORDERED: SODIUM CHLORIDE 0.9% 1,000ML IVBOLUS ONE (21:30)
[2017-11-24 21:59] LABS: ALANINE AMINOTRANSFERASE 38 U/L (12-78); ALBUMIN 2.4 g/dL (3.4-5.0); ANION GAP 9 mmol/L (5-15); CALCIUM 7.5 mg/dL (8.5-10.1); CHLORIDE 105 mmol/L (98-107); CREATININE 0.71 mg/dL (0.55-1.02)
[2017-11-24 22:01] LABS: ALKALINE PHOSPHATASE 182 U/L (45-117); BILIRUBIN,TOTAL 1.7 mg/dL (0.2-1.0); TOTAL PROTEIN 7.2 g/dL (6.4-8.2)
[2017-11-24 22:40] LABS: MD YES; MEAN CORPUSCULAR HEMOGLOBIN 30.4 pg (27.0-34.8); MEAN CORPUSCULAR HGB CONC 34.2 g/dL (32.4-35.8); MEAN PLATELET VOLUME 8.4 fL (7.4-10.4); PLATELET COUNT 52 x10^3/uL (130-400); RED BLOOD COUNT 3.22 x10^6/uL (3.82-5.3); RED CELL DISTRIBUTION WIDTH 18.6 % (9.6-15.2)
[2017-11-24 22:44] LABS: BASOS#(MANUAL) 0.02 x10^3/uL (0-0.1); BASOS% (MANUAL) 1 % (0-1); EOS#(MANUAL) 0.04 x10^3/uL (0.0-0.4); EOS% (MANUAL) 2 % (1-7); LYMPH#(MANUAL) 0.46 x10^3/uL (1-3.4); LYMPHS% (MANUAL) 23 % (22-44); METAMYELOCYTES# (MANUAL) 0.02 x10^3/uL (0-0); METAMYELOCYTES% (MANUAL) 1 % (0-1); MONOS#(MANUAL) 0.28 x10^3/uL (0.3-2.7); MONOS% (MANUAL) 14 % (2-9); SEG#(MANUAL) 1.18 x10^3/uL (1.8-6.8); SEGS% (MANUAL) 59 % (42-75)
[2017-11-24 22:45] LABS: ANISOCYTOSIS 1+; OVALOCYTES 1+
[2017-11-24 22:46] LABS: <PLATELET ESTIMATE> DECREASED; <PLT MORPHOLOGY> NORMAL PLT MORPH
[2017-11-25 04:07] VITALS: BP 124/78
== END 2017-11-25 04:10 | disposition home or self-care (01) ==
LOC: ED 22:41
DX: K29.20 Alcoholic gastritis without bleeding (principal); F10.120 Alcohol abuse with intoxication, uncomplicated; F15.10 Other stimulant abuse, uncomplicated; I50.9 Heart failure, unspecified; I11.0 Hypertensive heart disease with heart failure; J44.9 Chronic obstructive pulmonary disease, unspecified; Z86.73 Personal history of transient ischemic attack (TIA), and cerebral infarction without residual deficits; Z87.891 Personal history of nicotine dependence; Z79.899 Other long term (current) drug therapy
CPT/HCPCS: 36415; 71045; 80053; 80307; 83690; 85025; 96360; 99285; J7030

== ENCOUNTER 2017-11-26 15:15 | Inpatient (IN) | payer OTHER, MEDICAID ==
[~2017-11-26] VITALS: Ht 154.9 cm; Wt 73.7 kg
[2017-11-26] MEDS ORDERED: LIDOCAINE-MPF 1%, 2ML ONE (15:41)
[2017-11-26 15:55] LABS: ALANINE AMINOTRANSFERASE 39 U/L (12-78); ALBUMIN 2.4 g/dL (3.4-5.0); ANION GAP 10 mmol/L (5-15); CALCIUM 7.6 mg/dL (8.5-10.1); CHLORIDE 107 mmol/L (98-107); CREATININE 0.56 mg/dL (0.55-1.02)
[2017-11-26 15:57] LABS: ALKALINE PHOSPHATASE 184 U/L (45-117); BILIRUBIN,TOTAL 2.2 mg/dL (0.2-1.0); TOTAL PROTEIN 7.4 g/dL (6.4-8.2)
[2017-11-26 15:59] LABS: INTERNATIONAL NORMALIZED RATIO 1.45 (0.93-1.1); PROTHROMBIN TIME 14.8 Seconds (9.6-11.5)
[2017-11-26 16:31] LABS: MEAN CORPUSCULAR HEMOGLOBIN 30.1 pg (27.0-34.8); MEAN CORPUSCULAR HGB CONC 33.6 g/dL (32.4-35.8); MEAN CORPUSCULAR VOLUME 89.4 fL (80-100); MEAN PLATELET VOLUME 9.1 fL (7.4-10.4); RED BLOOD COUNT 3.78 x10^6/uL (3.82-5.3)
[2017-11-26 16:32] LABS: MD YES
[2017-11-26 16:35] LABS: PLATELET COUNT 22 x10^3/uL (130-400)
[2017-11-26 16:59] LABS: BAND#(MANUAL) 0.07 x10^3/uL; BANDS%(MANUAL) 4 % (0-7); LYMPH#(MANUAL) 0.18 x10^3/uL (1-3.4); LYMPHS% (MANUAL) 10 % (22-44); METAMYELOCYTES# (MANUAL) 0.02 x10^3/uL (0-0); METAMYELOCYTES% (MANUAL) 1 % (0-1); MYELOCYTES# (MANUAL) 0.02 x10^3/uL (0-0); MYELOCYTES% (MANUAL) 1 % (0-0)
[2017-11-26 17:00] LABS: MONOS#(MANUAL) 0.25 x10^3/uL (0.3-2.7); MONOS% (MANUAL) 14 % (2-9); SEG#(MANUAL) 1.26 x10^3/uL (1.8-6.8); SEGS% (MANUAL) 70 % (42-75)
[2017-11-26 17:01] LABS: ANISOCYTOSIS 1+
[2017-11-26 17:02] LABS: <PLATELET ESTIMATE> DECREASED; <PLT MORPHOLOGY> NORMAL PLT MORPH; OVALOCYTES 1+
[2017-11-26 18:47] LABS: CULTURE INDICATED? YES; MICROSCOPIC INDICATED
[2017-11-26] MEDS ORDERED: CEFTRIAXONE 1,000 MG in SODIUM CHLORIDE 0.9% 50 ML IVPB ONE (19:00)
[2017-11-26] MEDS ORDERED: CEFTRIAXONE PMX 1GM/50ML 50 ML ONE (19:19)
[2017-11-26 19:35] LABS: CELLS COUNTED 1340
[2017-11-26] MEDS ORDERED: DOCUSATE 100 MG CAPSULE PO PRN (21:30)
[2017-11-26] MEDS ORDERED: OXYcodone IR 5MG TABLET PO PRN (21:30)
[2017-11-26] MEDS ORDERED: PROMETHAZINE 25 MG/ML, 1ML IM PRN (21:30)
[2017-11-26] MEDS ORDERED: ONDANSETRON 2MG/ML, 2ML IVPush PRN (21:30)
[2017-11-26] MEDS ORDERED: morphine SULFATE 10 MG/ML, 1ML IVPush PRN (21:30)
[2017-11-26] MEDS ORDERED: POLYETHYLENE GLYCOL 17 GM PACKET PO PRN (21:30)
[2017-11-26] MEDS ORDERED: ONDANSETRON ODT 4 MG PO PRN (21:30)
[2017-11-26] MEDS ORDERED: hydrALAzine 20 MG/ML, 1ML IVPush PRN (21:30)
[2017-11-26] MEDS ORDERED: LABETALOL 5MG/ML, 20ML IVPush PRN (21:30)
[2017-11-26] MEDS ORDERED: CEFTRIAXONE 1,000 MG in SODIUM CHLORIDE 0.9% 50 ML IV ONE (22:00)
[2017-11-26] MEDS ORDERED: LORazepam 2 MG/ML, 1ML IV PRN ×5 (22:00)
[2017-11-26] MEDS ORDERED: LORazepam 1MG TABLET PO PRN ×4 (22:00)
[2017-11-26] MEDS ORDERED: LORazepam 0.5MG TABLET PO PRN (22:00)
[2017-11-26] MEDS: LACTULOSE 10 GM/15 ML UDC PO SCH (22:55)
[2017-11-26] MEDS: FAMOTIDINE 20 MG TABLET PO SCH (22:55)
[2017-11-26 23:00] LABS: FREE T4 (FREE THYROXINE) 1.26 ng/dL (0.76-1.46); THYROID STIMULATING HORMONE 3.1 mIU/L (0.358-3.740)
[2017-11-26 23:37] LABS: HEMOGLOBIN A1C 4.1 % (4.2-6.3)
[2017-11-27 01:21] VITALS: BP 129/76
[2017-11-27 02:06] VITALS: BP 113/63
[2017-11-27 06:20] LABS: MEAN CORPUSCULAR HEMOGLOBIN 29.8 pg (27.0-34.8); MEAN CORPUSCULAR HGB CONC 33.5 g/dL (32.4-35.8); RED BLOOD COUNT 3.43 x10^6/uL (3.82-5.3); RED CELL DISTRIBUTION WIDTH 18.9 % (9.6-15.2)
[2017-11-27 06:21] LABS: ALANINE AMINOTRANSFERASE 37 U/L (12-78); ALBUMIN 2.2 g/dL (3.4-5.0); ANION GAP 11 mmol/L (5-15); CALCIUM 7.4 mg/dL (8.5-10.1); CHLORIDE 104 mmol/L (98-107)
[2017-11-27 06:24] LABS: ALKALINE PHOSPHATASE 187 U/L (45-117); BILIRUBIN,TOTAL 1.8 mg/dL (0.2-1.0); CHOL/HDL RATIO 1.8; CHOLESTEROL, TOTAL 91 mg/dL (140-239); CREATININE 0.53 mg/dL (0.55-1.02); HDL CHOL % 56 % (28-40); HDL CHOLESTEROL (DIRECT) 51 mg/dL (40-60); LDL CHOLESTEROL,CALCULATED 22 mg/dL (54-169); LDL/HDL RATIO 0.4 (0.5-3.0); TRIGLYCERIDES 88 mg/dL (50-200); VLDL CHOLESTEROL 18 mg/dL (0-25)
[2017-11-27 07:04] LABS: MEAN PLATELET VOLUME 9.5 fL (7.4-10.4)
[2017-11-27 07:16] LABS: BASOPHILS # (AUTO) 0.01 x10^3/uL (0-0.1); BASOPHILS % (AUTO) 1 % (0-1); EOSINOPHILS # (AUTO) 0.08 x10^3/uL (0-0.4); EOSINOPHILS % (AUTO) 5 % (1-7); LYMPHOCYTES # (AUTO) 0.33 x10^3/uL (1-3.4); LYMPHOCYTES % (AUTO) 21 % (22-44); MD SCAN; MONOCYTES # (AUTO) 0.23 x10^3/uL (0.2-0.8); MONOCYTES % (AUTO) 15 % (2-9); NEUTROPHILS # (AUTO) 0.92 x10^3/uL (1.8-6.8); NEUTROPHILS % (AUTO) 59 % (42-75)
[2017-11-27 07:23] LABS: PLATELET COUNT 19 x10^3/uL (130-400)
[2017-11-27 07:35] VITALS: BP 133/68
[2017-11-27] MEDS: LACTULOSE 10 GM/15 ML UDC PO SCH ×2 (09:36→21:00)
[2017-11-27] MEDS: FAMOTIDINE 20 MG TABLET PO SCH ×2 (09:36→22:11)
[2017-11-27] MEDS: MULTIVITAMIN 1 TABLET PO SCH (09:36)
[2017-11-27] MEDS: THIAMINE 100MG TABLET PO SCH (09:36)
[2017-11-27] MEDS: FOLIC ACID 1 MG TABLET PO SCH (09:37)
[2017-11-27] MEDS: FLUTICASONE/VILANTEROL 200-25MCG/INH INH SCH (10:19)
[2017-11-27 14:30] VITALS: BP 147/85
[2017-11-27 18:58] VITALS: BP 136/78
[2017-11-27] MEDS: CEFTRIAXONE 2 GM in SODIUM CHLORIDE 0.9% 50 ML IV SCH (21:05)
[2017-11-28 01:30] VITALS: BP 134/83
[2017-11-28 05:55] LABS: CHLORIDE 103 mmol/L (98-107)
[2017-11-28 06:00] LABS: ALBUMIN 1.7 g/dL (3.4-5.0); ANION GAP 7 mmol/L (5-15); CALCIUM 7.6 mg/dL (8.5-10.1); CREATININE 0.67 mg/dL (0.55-1.02)
[2017-11-28 07:32] LABS: MEAN CORPUSCULAR HEMOGLOBIN 29.6 pg (27.0-34.8); MEAN CORPUSCULAR HGB CONC 33.1 g/dL (32.4-35.8); MEAN CORPUSCULAR VOLUME 89.4 fL (80-100); MEAN PLATELET VOLUME 10.6 fL (7.4-10.4); RED BLOOD COUNT 3.46 x10^6/uL (3.82-5.3)
[2017-11-28 07:34] LABS: PLATELET COUNT 17 x10^3/uL (130-400)
[2017-11-28 07:51] LABS: BASOPHILS # (AUTO) 0.01 x10^3/uL (0-0.1); BASOPHILS % (AUTO) 1 % (0-1); EOSINOPHILS # (AUTO) 0.12 x10^3/uL (0-0.4); EOSINOPHILS % (AUTO) 6 % (1-7); LYMPHOCYTES # (AUTO) 0.34 x10^3/uL (1-3.4); LYMPHOCYTES % (AUTO) 17 % (22-44); MD SCAN; MONOCYTES # (AUTO) 0.35 x10^3/uL (0.2-0.8); MONOCYTES % (AUTO) 18 % (2-9); NEUTROPHILS # (AUTO) 1.16 x10^3/uL (1.8-6.8); NEUTROPHILS % (AUTO) 59 % (42-75)
[2017-11-28 08:30] VITALS: BP 122/75
[2017-11-28] MEDS: FLUTICASONE/VILANTEROL 200-25MCG/INH INH SCH (08:39)
[2017-11-28] MEDS: LACTULOSE 10 GM/15 ML UDC PO SCH ×2 (08:39→21:50)
[2017-11-28] MEDS: MULTIVITAMIN 1 TABLET PO SCH (08:39)
[2017-11-28] MEDS: FOLIC ACID 1 MG TABLET PO SCH (08:40)
[2017-11-28] MEDS: FAMOTIDINE 20 MG TABLET PO SCH ×2 (08:40→21:50)
[2017-11-28] MEDS: THIAMINE 100MG TABLET PO SCH (08:40)
[2017-11-28 09:15] LABS: ALBUMIN 2.1 g/dL (3.4-5.0); BILIRUBIN, DIRECT 1.1 mg/dL (0.1-0.2)
[2017-11-28 09:18] LABS: BILIRUBIN,INDIRECT 0.7 mg/dL (0.0-2.0); BILIRUBIN,TOTAL 1.8 mg/dL (0.2-1.0); TOTAL PROTEIN 7.1 g/dL (6.4-8.2)
[2017-11-28 14:27] VITALS: BP 126/80
[2017-11-28 16:16] LABS: AMPHETAMINE SCREEN, URINE Negative (Negative); BARBITURATE SCREEN, URINE Negative (Negative); BENZODIAZEPINE SCREEN, URINE Positive (Negative); CANNABINOID SCREEN, URINE Negative (Negative); COCAINE SCREEN, URINE Negative (Negative); METHADONE SCREEN, URINE Negative (Negative); OPIATE SCREEN, URINE Negative (Negative)
[2017-11-28 19:44] VITALS: BP 109/69
[2017-11-28] MEDS: CEFTRIAXONE 2 GM in SODIUM CHLORIDE 0.9% 50 ML IV SCH (19:59)
[2017-11-29 00:10] VITALS: BP 131/75
[2017-11-29 06:02] LABS: ANION GAP 8 mmol/L (5-15); CALCIUM 7.2 mg/dL (8.5-10.1); CHLORIDE 102 mmol/L (98-107)
[2017-11-29 06:04] LABS: CREATININE 0.67 mg/dL (0.55-1.02)
[2017-11-29 06:51] LABS: MEAN CORPUSCULAR HGB CONC 33.3 g/dL (32.4-35.8); MEAN CORPUSCULAR VOLUME 90.1 fL (80-100); MEAN PLATELET VOLUME 9.6 fL (7.4-10.4); RED BLOOD COUNT 3.29 x10^6/uL (3.82-5.3); RED CELL DISTRIBUTION WIDTH 18.8 % (9.6-15.2)
[2017-11-29 06:52] LABS: PLATELET COUNT 16 x10^3/uL (130-400)
[2017-11-29 06:53] LABS: MD YES
[2017-11-29 06:57] LABS: EOS#(MANUAL) 0.02 x10^3/uL (0.0-0.4); EOS% (MANUAL) 1 % (1-7); LYMPH#(MANUAL) 0.34 x10^3/uL (1-3.4); LYMPHS% (MANUAL) 19 % (22-44); MONOS#(MANUAL) 0.13 x10^3/uL (0.3-2.7); MONOS% (MANUAL) 7 % (2-9); SEG#(MANUAL) 1.31 x10^3/uL (1.8-6.8); SEGS% (MANUAL) 73 % (42-75)
[2017-11-29 06:58] LABS: <PLATELET ESTIMATE> DECREASED; ANISOCYTOSIS 1+; OVALOCYTES 1+
[2017-11-29 06:59] LABS: LARGE PLATELETS 1+
[2017-11-29 07:00] LABS: POLYCHROMASIA 1+
[2017-11-29] MEDS: THIAMINE 100MG TABLET PO SCH (08:14)
[2017-11-29] MEDS: LACTULOSE 10 GM/15 ML UDC PO SCH ×2 (08:14→21:00)
[2017-11-29] MEDS: FLUTICASONE/VILANTEROL 200-25MCG/INH INH SCH (08:14)
[2017-11-29] MEDS: FOLIC ACID 1 MG TABLET PO SCH (08:14)
[2017-11-29] MEDS: FAMOTIDINE 20 MG TABLET PO SCH ×2 (08:14→19:19)
[2017-11-29] MEDS: MULTIVITAMIN 1 TABLET PO SCH (08:15)
[2017-11-29 08:24] VITALS: BP 119/66
[2017-11-29 14:30] VITALS: BP 117/72
[2017-11-29 19:45] VITALS: BP 130/79
[2017-11-29] MEDS ORDERED: ALBUTEROL/IPRATROPIUM 2.5MG/0.5MG, 3 ML ONE (21:05)
[2017-11-29] MEDS: ALBUTEROL/IPRATROPIUM 2.5MG/0.5MG, 3 ML NPPB SCH (21:12)
[2017-11-30 00:07] VITALS: BP 124/78
[2017-11-30 07:09] VITALS: BP 107/66
[2017-11-30] MEDS: ALBUTEROL/IPRATROPIUM 2.5MG/0.5MG, 3 ML NPPB SCH ×5 (07:40→20:40)
[2017-11-30] MEDS: LACTULOSE 10 GM/15 ML UDC PO SCH ×2 (08:37→20:38)
[2017-11-30] MEDS: THIAMINE 100MG TABLET PO SCH (08:38)
[2017-11-30] MEDS: FOLIC ACID 1 MG TABLET PO SCH (08:38)
[2017-11-30] MEDS: MULTIVITAMIN 1 TABLET PO SCH (08:39)
[2017-11-30] MEDS: FAMOTIDINE 20 MG TABLET PO SCH ×2 (08:39→20:38)
[2017-11-30] MEDS: FLUTICASONE/VILANTEROL 200-25MCG/INH INH SCH (09:00)
[2017-11-30 15:14] LABS: ALBUMIN 2.2 g/dL (3.4-5.0); ANION GAP 5 mmol/L (5-15); CALCIUM 7.6 mg/dL (8.5-10.1); CHLORIDE 100 mmol/L (98-107)
[2017-11-30 15:15] LABS: CREATININE 0.71 mg/dL (0.55-1.02)
[2017-11-30 15:25] VITALS: BP 138/90
[2017-11-30 15:38] LABS: MD YES; MEAN CORPUSCULAR HEMOGLOBIN 29.9 pg (27.0-34.8); MEAN CORPUSCULAR HGB CONC 33.1 g/dL (32.4-35.8); MEAN CORPUSCULAR VOLUME 90.3 fL (80-100); MEAN PLATELET VOLUME 9.5 fL (7.4-10.4); RED BLOOD COUNT 3.44 x10^6/uL (3.82-5.3)
[2017-11-30 15:39] LABS: PLATELET COUNT 26 x10^3/uL (130-400)
[2017-11-30 15:45] LABS: ANISOCYTOSIS 1+; BAND#(MANUAL) 0.02 x10^3/uL; BANDS%(MANUAL) 1 % (0-7); EOS#(MANUAL) 0.09 x10^3/uL (0.0-0.4); EOS% (MANUAL) 4 % (1-7); LYMPH#(MANUAL) 0.41 x10^3/uL (1-3.4); LYMPHS% (MANUAL) 18 % (22-44); MONOS#(MANUAL) 0.41 x10^3/uL (0.3-2.7); MONOS% (MANUAL) 18 % (2-9); POLYCHROMASIA 1+; SEG#(MANUAL) 1.36 x10^3/uL (1.8-6.8); SEGS% (MANUAL) 59 % (42-75)
[2017-11-30 15:46] LABS: <PLATELET ESTIMATE> DECREASED; LARGE PLATELETS 1+
[2017-11-30 19:45] VITALS: BP 118/77
[2017-12-01 01:30] VITALS: BP 121/71
[2017-12-01] MEDS: ALBUTEROL/IPRATROPIUM 2.5MG/0.5MG, 3 ML NPPB SCH ×3 (07:10→20:05)
[2017-12-01 07:26] VITALS: BP 101/67
[2017-12-01] MEDS: FOLIC ACID 1 MG TABLET PO SCH (08:52)
[2017-12-01] MEDS: MULTIVITAMIN 1 TABLET PO SCH (08:52)
[2017-12-01] MEDS: LACTULOSE 10 GM/15 ML UDC PO SCH ×2 (08:52→19:58)
[2017-12-01] MEDS: FAMOTIDINE 20 MG TABLET PO SCH ×2 (08:52→19:58)
[2017-12-01] MEDS: THIAMINE 100MG TABLET PO SCH (08:52)
[2017-12-01] MEDS: FLUTICASONE/VILANTEROL 200-25MCG/INH INH SCH (08:52)
[2017-12-01 12:32] VITALS: BP 100/59
[2017-12-01 12:41] LABS: MEAN CORPUSCULAR HGB CONC 33.3 g/dL (32.4-35.8); MEAN CORPUSCULAR VOLUME 90.2 fL (80-100); MEAN PLATELET VOLUME 8.2 fL (7.4-10.4); RED BLOOD COUNT 3.22 x10^6/uL (3.82-5.3); RED CELL DISTRIBUTION WIDTH 18.9 % (9.6-15.2)
[2017-12-01 12:42] LABS: MD YES; PLATELET COUNT 42 x10^3/uL (130-400)
[2017-12-01 12:47] LABS: <PLATELET ESTIMATE> DECREASED; ANISOCYTOSIS 1+; BAND#(MANUAL) 0.03 x10^3/uL; BANDS%(MANUAL) 1 % (0-7); EOS% (MANUAL) 4 % (1-7); LYMPH#(MANUAL) 0.68 x10^3/uL (1-3.4); LYMPHS% (MANUAL) 26 % (22-44); MONOS#(MANUAL) 0.42 x10^3/uL (0.3-2.7); MONOS% (MANUAL) 16 % (2-9); POLYCHROMASIA 1+; SEG#(MANUAL) 1.38 x10^3/uL (1.8-6.8); SEGS% (MANUAL) 53 % (42-75)
[2017-12-01 12:48] LABS: <PLT MORPHOLOGY> NORMAL PLT MORPH
[2017-12-01 19:28] VITALS: BP 131/77
[2017-12-02 00:53] VITALS: BP 149/78
[2017-12-02] MEDS: ALBUTEROL/IPRATROPIUM 2.5MG/0.5MG, 3 ML NPPB SCH ×4 (01:11→11:00)
[2017-12-02 07:55] VITALS: BP 123/78
[2017-12-02] MEDS: FOLIC ACID 1 MG TABLET PO SCH (09:00)
[2017-12-02] MEDS: THIAMINE 100MG TABLET PO SCH (10:17)
[2017-12-02] MEDS: LACTULOSE 10 GM/15 ML UDC PO SCH (10:17)
[2017-12-02] MEDS: FLUTICASONE/VILANTEROL 200-25MCG/INH INH SCH (10:17)
[2017-12-02] MEDS: FAMOTIDINE 20 MG TABLET PO SCH (10:17)
[2017-12-02] MEDS: MULTIVITAMIN 1 TABLET PO SCH (10:17)
[2017-12-02 10:35] LABS: MEAN CORPUSCULAR HEMOGLOBIN 29.3 pg (27.0-34.8); MEAN CORPUSCULAR VOLUME 88.7 fL (80-100); MEAN PLATELET VOLUME 8.4 fL (7.4-10.4); RED BLOOD COUNT 3.29 x10^6/uL (3.82-5.3); RED CELL DISTRIBUTION WIDTH 18.7 % (9.6-15.2)
[2017-12-02 10:39] LABS: MD YES; PLATELET COUNT 42 x10^3/uL (130-400)
[2017-12-02 10:48] LABS: EOS% (MANUAL) 4 % (1-7); LYMPH#(MANUAL) 0.68 x10^3/uL (1-3.4); LYMPHS% (MANUAL) 26 % (22-44); MONOS#(MANUAL) 0.36 x10^3/uL (0.3-2.7); MONOS% (MANUAL) 14 % (2-9); REACTIVE LYMPHS # (MANUAL) 0.03 x10^3/uL (0-0); REACTIVE LYMPHS % (MANUAL) 1 % (0-0); SEG#(MANUAL) 1.43 x10^3/uL (1.8-6.8); SEGS% (MANUAL) 55 % (42-75)
[2017-12-02 10:50] LABS: <PLATELET ESTIMATE> DECREASED; LARGE PLATELETS 1+; POLYCHROMASIA 1+
[2017-12-02] MEDS ORDERED: ONDA4TAB13 PO (11:46)
[2017-12-02] MEDS ORDERED: DOCU-131 PO (11:46)
[2017-12-02 14:06] VITALS: BP 107/64
== END 2017-12-02 14:13 | disposition home or self-care (01) | DRG 872 ==
LOC: ED 19:33 → EDIP 19:50 → 3NE 22:43 → EDIP 22:43 → 3NE 23:32
PROVIDERS: ADMIT Internal Medicine; ATTEND Internal Medicine
PROC: 0W9G3ZZ Drainage of Peritoneal Cavity, Percutaneous Approach (ICD-10-PCS; principal; 2017-11-26)
PROC: 0T9B70Z Drainage of Bladder with Drainage Device, Via Natural or Artificial Opening (ICD-10-PCS; 2017-11-26)
DX: A41.9 Sepsis, unspecified organism (principal); K76.6 Portal hypertension; D61.818 Other pancytopenia; D63.8 Anemia in other chronic diseases classified elsewhere; K70.31 Alcoholic cirrhosis of liver with ascites; I11.0 Hypertensive heart disease with heart failure; F17.200 Nicotine dependence, unspecified, uncomplicated; I50.9 Heart failure, unspecified; K72.90 Hepatic failure, unspecified without coma; J44.9 Chronic obstructive pulmonary disease, unspecified; Z66 Do not resuscitate; F10.229 Alcohol dependence with intoxication, unspecified; K59.00 Constipation, unspecified; Z91.19 Patient's noncompliance with other medical treatment and regimen; Z86.73 Personal history of transient ischemic attack (TIA), and cerebral infarction without residual deficits
CPT/HCPCS: 36415; 82042; 87806; 99285; J7620; 49083; 76700; 80053; 80061; 80069; 80074; 80076; 80307; 81001; 82140; 83036; 83605; 83615; 83735; 84100; 84439; 84443; 84550; 85025; 85610; 87040; 87070; 87086; 87205; 88112; 88305; 89051; 93005; 94640; 96365; J0696; J3490; Q0162; G0475; J2060; J2270

== ENCOUNTER → 2018-02-09 | Outpatient (CLI) | payer OTHER, MEDICAID ==
[~2018-02-09] MED LIST changes: +DOCU-131 PO; +LIDOCAINE-MPF 1%, 5ML ONE; +ONDA4TAB13 PO
== END | disposition home or self-care (01) ==
LOC: RAD 13:40
PROVIDERS: ATTEND Internal Medicine Endocrinology, Diabetes & Metabolism
DX: K70.31 Alcoholic cirrhosis of liver with ascites (principal); I11.0 Hypertensive heart disease with heart failure; J44.9 Chronic obstructive pulmonary disease, unspecified; J45.909 Unspecified asthma, uncomplicated; I50.9 Heart failure, unspecified
CPT/HCPCS: 49083

== ENCOUNTER 2019-08-28 09:47 | Emergency (ER) | payer MEDICARE, MEDICAID ==
[~2019-08-28] VITALS: Ht 167.6 cm; Wt 72.0 kg
[~2019-08-28 09:47] MED LIST changes: -LIDOCAINE-MPF 1%, 5ML ONE
[2019-08-28 09:49] VITALS: BP 114/65
--- NOTE | 2019-08-28 10:17 | NUR ---
PT RESTING COMFORTABLY ON GURNEY AT THIS TIME. NIBP AND [address] PT ON 4 LPM O2 FOR ROOM AIR OF 80%. EQUAL CHEST RISE AND FALL OBSERVED. NADN. PT VISIBLE FROM NURSES STATION. BED LOW POSITION, BED RAILS UP, CALL LIGHT ON LAP. WARM BLANKETS PROVIDED AND PT ENCOURAGED TO CALL.
--- NOTE | 2019-08-28 11:21 | NUR ---
PT FOUND SITTING ON EDGE OF BED. ALL MONITORING EQUIPMENT REMOVED BY PT. PT REFUSING TO KEEP EQUIPMENT ON AND REFUSING NASAL CANNULA. PT REQUESTING FOOD AND WATER. WATER PROVIDED FOR PT AND FOOD ORDERED. PT ASSISTED BACK TO BED AND ENCOURAGED TO CALL. PT UPDATED THAT FOOD IS ON WAY.
--- NOTE | 2019-08-28 12:19 | NUR ---
PT PROVIDED FOOD AT THIS TIME. PT AXOX4 BUT UNABLE TO AMBULATE. WILL ATTEMPT TO ASSESS PTS MOBLITY POST FOOD AND WATER.
--- NOTE | 2019-08-28 12:49 | NUR ---
ATTEMPT TO AMBULATE PT AT THIS TIME UNSUCCESSFUL. PT UNABLE TO AMBULATE BY SELF AND USED WALL FOR STABILITY. PT REDIRECTED BACK TO BED AND GIVEN WARM BLANKETS
--- NOTE | 2019-08-28 15:35 | NUR ---
PT RESTING IN BED. EQUAL CHEST RISE AND FALL OBSERVED. NADN. CALL LIGHT IN REACH.
== END 2019-08-28 16:16 | disposition home or self-care (01) ==
LOC: ED 10:00
DX: F10.220 Alcohol dependence with intoxication, uncomplicated (principal); Z72.9 Problem related to lifestyle, unspecified; I11.0 Hypertensive heart disease with heart failure; I50.9 Heart failure, unspecified; J44.9 Chronic obstructive pulmonary disease, unspecified; E78.00 Pure hypercholesterolemia, unspecified; Z86.718 Personal history of other venous thrombosis and embolism; Y90.9 Presence of alcohol in blood, level not specified
CPT/HCPCS: 99283

== ENCOUNTER 2019-10-08 13:43 | Emergency (ER) | payer MEDICARE, MEDICAID ==
[~2019-10-08] VITALS: Ht 154.9 cm; Wt 60.0 kg
[~2019-10-08 13:43] MED LIST changes: +FURO20TA3 PO; +SPIR25TA PO; +TRAM50TA2 PO
--- NOTE | 2019-10-08 14:04 | NUR ---
THIS IS A 64 YO F BIB EMS AFTER BEING FOUND BY THE [facility] LYING ON THE SIDEWALK OUTSIDE THE BUS STATION. PT REPORTS DRINKING 4 BEERS TODAY W/ HER FRIENDS. PT DENIES FALL. ONLY C/O IS RT KNEE PAIN THAT STARTED TODAY. PT A&OX34, AMBULATED W/ A STEADY GAIT. RESP EVEN AND UNLABORED, NADN. AWAITING ED EVAL.
--- NOTE | 2019-10-08 14:11 | NUR ---
BRIEF SOILED IN URINE. BRIEF CHANGED.
--- NOTE | 2019-10-08 15:12 | NUR ---
PT SLEEPING ON GURNEY. RESP EVEN AND UNLABORED, NOAH.
[2019-10-08 16:18] VITALS: BP 122/59
--- NOTE | 2019-10-08 16:24 | NUR ---
PT AMBULATORY W/ A STEADY GAIT.
== END 2019-10-08 16:40 | disposition home or self-care (01) ==
LOC: ED 14:36
DX: S80.01XA Contusion of right knee, initial encounter (principal); F10.120 Alcohol abuse with intoxication, uncomplicated; R00.0 Tachycardia, unspecified; I11.0 Hypertensive heart disease with heart failure; I50.9 Heart failure, unspecified; K21.9 Gastro-esophageal reflux disease without esophagitis; E78.00 Pure hypercholesterolemia, unspecified; J45.909 Unspecified asthma, uncomplicated; Z86.73 Personal history of transient ischemic attack (TIA), and cerebral infarction without residual deficits; X58.XXXA Exposure to other specified factors, initial encounter; Y93.89 Activity, other specified; Y92.89 Other specified places as the place of occurrence of the external cause; Y99.8 Other external cause status; Y90.9 Presence of alcohol in blood, level not specified
CPT/HCPCS: 99283

== ENCOUNTER 2019-10-08 21:17 | Emergency (ER) | payer MEDICARE, MEDICAID ==
[~2019-10-08] VITALS: Ht 154.9 cm; Wt 60.0 kg
[2019-10-08 21:22] VITALS: BP 113/52
--- NOTE | 2019-10-08 21:51 | NUR ---
SEATED SAFELY IN WHEELCHAIR IN NURSES STATION, WARM BLANKET ON PT. RESP RATE EVEN AND REGULAR.
--- NOTE | 2019-10-08 22:27 | NUR ---
SLEEPING QUIETLY, NAD AT THIS TIME, IN WHEELCHAIR AT NURSES STATION FOR PT SAFETY, RESP RATE EVEN AND REGULAR
--- NOTE | 2019-10-08 22:47 | NUR ---
PT REQUESTING IV, AWARE THAT THIS IS NOT NEEDED AT THIS TIME.
--- NOTE | 2019-10-08 23:08 | NUR ---
Pt resting in wheelchair, no distress. Pt requesting IV because she sob. Pt is not SOB or need an IV at this time per MD iglesias.
--- NOTE | 2019-10-08 23:59 | NUR ---
SLEEPING QUIETLY IN WHEELCHAIR IN VIEW OF NURSE STATION FOR PT SAFETY, RESP RATE EVEN AND REG. AWAIT SOBRIETY FOR SAFE DISCHARGE.
--- NOTE | 2019-10-09 00:03 | NUR ---
PT CONTINUES TO SLEEP QUIETLY IN WHEELCHAIR IN VIEW OF NURSE STATION FOR PT SAFETY, RESP RATE EVEN AND REG. AWAIT SOBRIETY FOR SAFE DISCHARGE.
--- NOTE | 2019-10-09 03:43 | NUR ---
PT RESTING IN WHEEL CHAIR WITH BLANKET. NO ACUTE DISTRESS NOTED. WILL CONT TO MONITOR.
== END 2019-10-09 05:46 | disposition home or self-care (01) ==
LOC: ED 22:22
DX: F10.120 Alcohol abuse with intoxication, uncomplicated (principal); Z72.9 Problem related to lifestyle, unspecified; E78.00 Pure hypercholesterolemia, unspecified; J44.9 Chronic obstructive pulmonary disease, unspecified; I11.0 Hypertensive heart disease with heart failure; I50.9 Heart failure, unspecified; Y90.9 Presence of alcohol in blood, level not specified
CPT/HCPCS: 99283

== ENCOUNTER 2019-10-10 23:15 | Emergency (ER) | payer MEDICARE, MEDICAID ==
[~2019-10-10] VITALS: Ht 154.9 cm; Wt 70.0 kg
[~2019-10-10 23:15] MED LIST changes: +MULT-449 PO; -MULT1TAB60 PO
--- NOTE | 2019-10-10 23:20 | NUR ---
CHRISTINA FROM [facility] FOR C/O BACK PAIN X2 MONTHS AND UNABLE TO SLEEP FROM DISCOMFORT ON LEFT SHOULDER. PT REPORTS DRINKING ALCOHOL TONIGHT. SAFETY FALL PRECAUTIONS IN PLACE.
--- NOTE | 2019-10-11 00:35 | NUR ---
URINE SAMPLE COLLECTED. PT TAKEN FOR XRAY.
[2019-10-11 00:48] VITALS: BP 131/64
[2019-10-11 01:03] LABS: MICROSCOPIC INDICATED
--- NOTE | 2019-10-11 02:19 | NUR ---
PT AMBULATED INDEPENDENTLY IN THE HALLWAY WITH A SHUFFLED GAIT. PT INDEPENDENTLY AMBULATED TO HER WHEELCHAIR THAT SHE CAME IN WITH. TAXI VOUCHER PROVIDED AND ALSO A CLEAN PAIR OR PANTS BECAUSE SHE SOILED HERSELF.
== END 2019-10-11 02:24 | disposition home or self-care (01) ==
LOC: ED 10-11 02:19
DX: S39.012A Strain of muscle, fascia and tendon of lower back, initial encounter (principal); E78.00 Pure hypercholesterolemia, unspecified; J44.9 Chronic obstructive pulmonary disease, unspecified; I11.0 Hypertensive heart disease with heart failure; I50.9 Heart failure, unspecified; X58.XXXA Exposure to other specified factors, initial encounter; Y93.89 Activity, other specified; Y92.89 Other specified places as the place of occurrence of the external cause; Y99.8 Other external cause status
CPT/HCPCS: 72110; 81001; 87086; 99284

== ENCOUNTER 2019-10-12 21:35 | Emergency (ER) | payer MEDICARE, MEDICAID ==
[~2019-10-12] VITALS: Ht 152.4 cm; Wt 59.6 kg
--- NOTE | 2019-10-12 21:52 | NUR ---
Pt found outside gas station not feeling well. Pt reports she was frozen and unable to walk. Pt has no truama or visible signs of injury. Per ems pt was ambulating and got up on her own. Pt on pulse oxyimetry and bp monitor. Pt resting in bed. Pt is a/ox4. Pt given warm blanket and both side rails up.
[2019-10-12] MEDS ORDERED: ACETAMINOPHEN 500 MG TABLET ONE (22:00)
[2019-10-12] MEDS ORDERED: ACETAMINOPHEN 500 MG TABLET PO ONE (22:00)
--- NOTE | 2019-10-12 22:37 | NUR ---
Pt resting in bed, NADN.
--- NOTE | 2019-10-12 23:45 | NUR ---
Pt very intoxicated and not feeling well. Pt unable to ambulate. Will let her sleep some more and see if ambulation improves.
--- NOTE | 2019-10-12 23:49 | NUR ---
Report to Hair ZAPATA
--- NOTE | 2019-10-13 | NUR ---
Report received and care assumed. Pt sleeping with resp even and unlabored. Pt does awake to name. States "I just had a half a beer". Appears intoxicated at this time. Pt has been incontinent of urine. Pt states "just give me a blanket and cover me up." Will attempt to change linens when pt agrees. Call light in reach. Bed in lowest position. VSS.
--- NOTE | 2019-10-13 01:02 | NUR ---
Pt up to ambulate. Able to walk with steady gait. Linens and clothing changed. ERP to be updated. VSS. Call light in reach. Warm blanket given.
[2019-10-13 02:08] VITALS: BP 133/73
== END 2019-10-13 02:11 | disposition home or self-care (01) ==
LOC: ED 23:28
DX: G89.29 Other chronic pain (principal); M25.562 Pain in left knee; M25.561 Pain in right knee; F10.120 Alcohol abuse with intoxication, uncomplicated; J44.9 Chronic obstructive pulmonary disease, unspecified; I11.0 Hypertensive heart disease with heart failure; I50.9 Heart failure, unspecified; E78.00 Pure hypercholesterolemia, unspecified; Z87.891 Personal history of nicotine dependence; Z86.73 Personal history of transient ischemic attack (TIA), and cerebral infarction without residual deficits; Y90.0 Blood alcohol level of less than 20 mg/100 ml
CPT/HCPCS: 99285

== ENCOUNTER 2019-12-25 13:36 | Inpatient (IN) | payer MEDICARE, MEDICAID ==
[~2019-12-25] VITALS: Ht 154.9 cm; Wt 73.3 kg
[2019-12-25] MEDS ORDERED: SODIUM CHLORIDE 0.9% 1,000ML IV ONE (14:00)
[2019-12-25] MEDS ORDERED: SODIUM CHLORIDE FLUSH 10ML SYR IVF ONE (14:00)
--- NOTE | 2019-12-25 14:00 | NUR ---
IV STARTED AND LABS DRAWN. FLUIDS RUNNING PER MD. PT HAD FORMED BM WHILE IN BED. PT CLEANED AND LINENS CHANGED.
--- NOTE | 2019-12-25 14:32 | NUR ---
PT IN RAD.
[2019-12-25 14:33] LABS: ALBUMIN 1.9 g/dL (3.4-5.0); ANION GAP 10 mmol/L (5-15); CALCIUM 7.6 mg/dL (8.5-10.1); CHLORIDE 108 mmol/L (98-107); CREATININE 0.74 mg/dL (0.55-1.02)
[2019-12-25 14:42] LABS: BASOPHILS % (AUTO) 0 % (0-1); EOSINOPHILS # (AUTO) 0.22 x10^3/uL (0-0.4); EOSINOPHILS % (AUTO) 6 % (1-7); LYMPHOCYTES # (AUTO) 0.72 x10^3/uL (1-3.4); LYMPHOCYTES % (AUTO) 19 % (22-44); MD MORPH REVIEW ONLY; MEAN CORPUSCULAR HEMOGLOBIN 29.3 pg (27.0-34.8); MEAN CORPUSCULAR HGB CONC 33.6 g/dL (32.4-35.8); MEAN CORPUSCULAR VOLUME 87.1 fL (80-100); MEAN PLATELET VOLUME 7.1 fL (7.4-10.4); MONOCYTES # (AUTO) 0.61 x10^3/uL (0.2-0.8); MONOCYTES % (AUTO) 16 % (2-9); NEUTROPHILS # (AUTO) 2.32 x10^3/uL (1.8-6.8); NEUTROPHILS % (AUTO) 60 % (42-75); PLATELET COUNT 64 x10^3/uL (130-400); RED BLOOD COUNT 3.52 x10^6/uL (3.82-5.3); RED CELL DISTRIBUTION WIDTH 22.8 % (9.6-15.2)
[2019-12-25 14:47] LABS: ANISOCYTOSIS 1+; POLYCHROMASIA 1+
[2019-12-25 14:48] LABS: <PLATELET ESTIMATE> DECREASED; <PLT MORPHOLOGY> NORMAL PLT MORPH; OVALOCYTES 1+
--- NOTE | 2019-12-25 14:51 | NUR ---
REPORT TO SHAQ ZAPATA.
--- NOTE | 2019-12-25 14:57 | NUR ---
SBAR HAND-OFF REPORT RECEIVED FROM JODI CASTRO. ASSUMING CARE OF PATIENT. VS UPDATED AND WNL. NS BOLUS COMPLETE. PT RESTING WITH NO COMPLAINTS. SIDE RAILS UP X2 FOR SAFETY. CALL LIGHT WITHIN REACH.
--- NOTE | 2019-12-25 16:17 | NUR ---
TLSO brace requested from [facility] as requested by Dr. Thomson for a T11 compression fracture. Spoke with Jose from [facility] who asks we fax an order, facesheet, physician clinical and patients height and weight. This information was faxed to [phone] per Jose's request and conformation of fax received and placed with chart. Jose states he lives in [facility] and will head towards the ED now.
--- NOTE | 2019-12-25 16:35 | NUR ---
PT TO MRI AT THIS TIME.
[2019-12-25] MEDS ORDERED: BISACODYL 10 MG SUPP PR PRN (18:00)
[2019-12-25] MEDS ORDERED: ONDANSETRON ODT 4 MG PO PRN (18:00)
[2019-12-25] MEDS ORDERED: POLYETHYLENE GLYCOL 17 GM PACKET PO PRN (18:00)
[2019-12-25] MEDS ORDERED: DOCUSATE 100 MG CAPSULE PO PRN (18:00)
[2019-12-25] MEDS ORDERED: MORPHINE SULFATE 4 MG/ML, 1ML ONE (18:14)
[2019-12-25] MEDS: SODIUM CHLORIDE 0.9% 1,000 ML IV SCH (18:20)
[2019-12-25] MEDS: morphine SULFATE 10 MG/ML, 1ML IVPush PRN ×2 (18:20→22:58)
--- NOTE | 2019-12-25 18:26 | NUR ---
PT MEDICATE FOR PER PER EMAR. VS UPDATED. PT RESTING WITH NO COMPLAINTS. MRI IS COMPLETE.
[2019-12-25 18:30] LABS: INTERNATIONAL NORMALIZED RATIO 1.36 (0.93-1.1)
--- NOTE | 2019-12-25 19:16 | NUR ---
REPORT FROM SHAQ ZAPATA, PT CURRENTLY AWAITING ADMISSION BED ASSIGNMENT. NAD NOTED AT THIS TIME. PT ASLEEP. [facility] EARL CAME TO PLACE BR[facility], PER SHAQ ZAPATA. MR EARL DECIDED TO NOT PLACE BRACE, AND INSTEAD WILL CALL TOMORROW TO CHECK AND SEE IF THIS PT STILL REQUIRES HIS INTERVENTIONS.
[2019-12-25 22:31] VITALS: BP 137/72
[2019-12-25] MEDS: FAMOTIDINE 20 MG TABLET PO SCH (22:57)
[2019-12-25] MEDS: LACTULOSE 20 GM/30 ML UDC PO SCH (22:57)
[2019-12-25] MEDS: THIAMINE 100MG TABLET PO SCH (22:57)
[2019-12-26 01:18] VITALS: BP 164/82
[2019-12-26] MEDS: ONDANSETRON ODT 4 MG PO PRN ×2 (03:22→08:30)
[2019-12-26] MEDS: ALBUTEROL HFA 90 MCG/SPRAY INH PRN (03:22)
[2019-12-26] MEDS: SODIUM CHLORIDE 0.9% 1,000 ML IV SCH ×2 (06:26→20:27)
[2019-12-26 07:36] LABS: CHLORIDE 111 mmol/L (98-107)
[2019-12-26 07:38] LABS: ANION GAP 8 mmol/L (5-15); CALCIUM 7.7 mg/dL (8.5-10.1)
[2019-12-26 08:01] LABS: BASOPHILS # (AUTO) 0.01 x10^3/uL (0-0.1); BASOPHILS % (AUTO) 0 % (0-1); EOSINOPHILS # (AUTO) 0.13 x10^3/uL (0-0.4); EOSINOPHILS % (AUTO) 3 % (1-7); LYMPHOCYTES # (AUTO) 0.43 x10^3/uL (1-3.4); LYMPHOCYTES % (AUTO) 9 % (22-44); MD NO; MEAN CORPUSCULAR HEMOGLOBIN 29.3 pg (27.0-34.8); MEAN CORPUSCULAR HGB CONC 33.2 g/dL (32.4-35.8); MEAN CORPUSCULAR VOLUME 88.4 fL (80-100); MEAN PLATELET VOLUME 7.3 fL (7.4-10.4); MONOCYTES # (AUTO) 0.49 x10^3/uL (0.2-0.8); MONOCYTES % (AUTO) 11 % (2-9); NEUTROPHILS % (AUTO) 77 % (42-75); PLATELET COUNT 57 x10^3/uL (130-400); RED BLOOD COUNT 3.82 x10^6/uL (3.82-5.3)
[2019-12-26 08:14] VITALS: BP 161/77
[2019-12-26] MEDS: SPIRONOLACTONE 25 MG TABLET PO SCH (08:30)
[2019-12-26] MEDS: FAMOTIDINE 20 MG TABLET PO SCH ×2 (08:30→20:27)
[2019-12-26] MEDS: LACTULOSE 20 GM/30 ML UDC PO SCH ×2 (08:30→20:27)
[2019-12-26] MEDS: MULTIVITAMIN 1 TABLET PO SCH (08:30)
[2019-12-26] MEDS: THIAMINE 100MG TABLET PO SCH ×2 (08:31→20:27)
[2019-12-26] MEDS: LORazepam 2 MG/ML, 1ML IVPush PRN ×2 (08:31→15:04)
[2019-12-26] MEDS ORDERED: FUROSEMIDE 20 MG TABLET PO SCH (09:00)
[2019-12-26] MEDS: FLUTICASONE/VILANTEROL 200-25MCG/INH INH SCH (09:57)
[2019-12-26 13:14] VITALS: BP 116/72
[2019-12-26] MEDS ORDERED: LORazepam 1MG TABLET PO PRN ×4 (15:30)
[2019-12-26] MEDS ORDERED: LORazepam 0.5MG TABLET PO PRN (15:30)
[2019-12-26] MEDS ORDERED: LORazepam 2 MG/ML, 1ML IV PRN ×6 (15:30)
[2019-12-26 19:08] VITALS: BP 124/80
[2019-12-27 00:15] VITALS: BP 142/67
[2019-12-27 06:08] LABS: CALCIUM 7.1 mg/dL (8.5-10.1); CHLORIDE 108 mmol/L (98-107)
[2019-12-27 06:11] LABS: ANION GAP 4 mmol/L (5-15); CREATININE 0.59 mg/dL (0.55-1.02)
[2019-12-27 06:17] LABS: MEAN CORPUSCULAR HEMOGLOBIN 29.5 pg (27.0-34.8); MEAN CORPUSCULAR HGB CONC 33.3 g/dL (32.4-35.8); MEAN CORPUSCULAR VOLUME 88.8 fL (80-100); RED BLOOD COUNT 3.52 x10^6/uL (3.82-5.3); RED CELL DISTRIBUTION WIDTH 23.5 % (9.6-15.2)
[2019-12-27 06:51] LABS: MEAN PLATELET VOLUME 7.4 fL (7.4-10.4)
[2019-12-27 06:54] LABS: PLATELET COUNT 44 x10^3/uL (130-400)
[2019-12-27 06:55] LABS: BASOPHILS % (AUTO) 0 % (0-1); EOSINOPHILS # (AUTO) 0.44 x10^3/uL (0-0.4); EOSINOPHILS % (AUTO) 10 % (1-7); LYMPHOCYTES # (AUTO) 0.39 x10^3/uL (1-3.4); LYMPHOCYTES % (AUTO) 8 % (22-44); MD SCAN; MONOCYTES # (AUTO) 0.45 x10^3/uL (0.2-0.8); MONOCYTES % (AUTO) 10 % (2-9); NEUTROPHILS # (AUTO) 3.37 x10^3/uL (1.8-6.8); NEUTROPHILS % (AUTO) 72 % (42-75)
[2019-12-27] MEDS: ALBUTEROL HFA 90 MCG/SPRAY INH PRN (08:55)
[2019-12-27] MEDS: FLUTICASONE/VILANTEROL 200-25MCG/INH INH SCH (08:56)
[2019-12-27] MEDS: LACTULOSE 20 GM/30 ML UDC PO SCH ×2 (08:56→20:45)
[2019-12-27] MEDS: SPIRONOLACTONE 25 MG TABLET PO SCH (08:56)
[2019-12-27] MEDS: THIAMINE 100MG TABLET PO SCH ×2 (08:56→20:45)
[2019-12-27] MEDS: MULTIVITAMIN 1 TABLET PO SCH (08:56)
[2019-12-27] MEDS ORDERED: POTASSIUM CHLORIDE 20 MEQ TAB.ER.PRT PO ONE (09:00)
[2019-12-27] MEDS: FUROSEMIDE 40 MG/4 ML IV SCH ×2 (11:06→17:36)
[2019-12-27 12:14] VITALS: BP 120/73
[2019-12-27] MEDS ORDERED: FUROSEMIDE 40 MG/4 ML IV SCH (17:00)
[2019-12-27] MEDS: SODIUM CHLORIDE 0.9% 1,000 ML IV SCH (17:39)
[2019-12-27 18:26] VITALS: BP 118/67
[2019-12-27] MEDS ORDERED: THIAMINE 50MG TABLET ONE (19:30)
[2019-12-27] MEDS: FAMOTIDINE 20 MG TABLET PO SCH (20:45)
[2019-12-27] MEDS: morphine SULFATE 10 MG/ML, 1ML IVPush PRN (23:38)
[2019-12-28 00:46] VITALS: BP 118/56
[2019-12-28] MEDS: morphine SULFATE 10 MG/ML, 1ML IVPush PRN (04:18)
[2019-12-28 07:05] VITALS: BP 114/75
[2019-12-28] MEDS ORDERED: THIAMINE 50MG TABLET ONE (08:09)
[2019-12-28] MEDS: FLUTICASONE/VILANTEROL 200-25MCG/INH INH SCH (08:24)
[2019-12-28] MEDS: FUROSEMIDE 40 MG/4 ML IV SCH ×2 (08:24→17:00)
[2019-12-28] MEDS: LACTULOSE 20 GM/30 ML UDC PO SCH ×2 (08:24→20:42)
[2019-12-28] MEDS: SPIRONOLACTONE 25 MG TABLET PO SCH (08:25)
[2019-12-28] MEDS: MULTIVITAMIN 1 TABLET PO SCH (08:25)
[2019-12-28] MEDS: THIAMINE 100MG TABLET PO SCH ×2 (08:25→20:42)
[2019-12-28 12:16] VITALS: BP 115/68
[2019-12-28 18:53] VITALS: BP 124/73
[2019-12-28] MEDS: FAMOTIDINE 20 MG TABLET PO SCH (20:42)
[2019-12-29 01:18] VITALS: BP 117/72
[2019-12-29] MEDS: ALBUTEROL HFA 90 MCG/SPRAY INH PRN ×3 (02:22→12:45)
[2019-12-29 05:54] LABS: ANION GAP 3 mmol/L (5-15); CALCIUM 7.6 mg/dL (8.5-10.1); CHLORIDE 103 mmol/L (98-107)
[2019-12-29 05:56] LABS: CREATININE 0.61 mg/dL (0.55-1.02)
[2019-12-29 05:57] LABS: MEAN CORPUSCULAR HEMOGLOBIN 29.1 pg (27.0-34.8); MEAN CORPUSCULAR HGB CONC 32.4 g/dL (32.4-35.8); MEAN CORPUSCULAR VOLUME 89.7 fL (80-100); RED BLOOD COUNT 3.64 x10^6/uL (3.82-5.3); RED CELL DISTRIBUTION WIDTH 23.7 % (9.6-15.2)
[2019-12-29 06:48] LABS: BASOPHILS % (AUTO) 0 % (0-1); EOSINOPHILS # (AUTO) 0.28 x10^3/uL (0-0.4); EOSINOPHILS % (AUTO) 5 % (1-7); LYMPHOCYTES # (AUTO) 0.49 x10^3/uL (1-3.4); LYMPHOCYTES % (AUTO) 8 % (22-44); MD SCAN; MEAN PLATELET VOLUME 7.3 fL (7.4-10.4); MONOCYTES # (AUTO) 0.98 x10^3/uL (0.2-0.8); MONOCYTES % (AUTO) 17 % (2-9); NEUTROPHILS # (AUTO) 4.17 x10^3/uL (1.8-6.8); NEUTROPHILS % (AUTO) 70 % (42-75); PLATELET COUNT 60 x10^3/uL (130-400)
[2019-12-29 06:50] VITALS: BP 113/73
[2019-12-29] MEDS: FUROSEMIDE 40 MG/4 ML IV SCH (08:14)
[2019-12-29] MEDS: THIAMINE 100MG TABLET PO SCH (08:15)
[2019-12-29] MEDS: LACTULOSE 20 GM/30 ML UDC PO SCH (08:15)
[2019-12-29] MEDS: SPIRONOLACTONE 25 MG TABLET PO SCH (08:15)
[2019-12-29] MEDS: MULTIVITAMIN 1 TABLET PO SCH (08:15)
[2019-12-29 12:39] VITALS: BP 116/67
[2019-12-29] MEDS: FLUTICASONE/VILANTEROL 200-25MCG/INH INH SCH (12:45)
== END 2019-12-29 18:21 | disposition home or self-care (01) | DRG 542 ==
LOC: ED 17:47 → EDIP 17:59 → 4EST 20:26 → 3N 12-28 18:05
PROVIDERS: ADMIT Family Medicine; ATTEND Hospitalist
DX: M48.54XA Collapsed vertebra, not elsewhere classified, thoracic region, initial encounter for fracture (principal); J96.01 Acute respiratory failure with hypoxia; I50.33 Acute on chronic diastolic (congestive) heart failure; F10.239 Alcohol dependence with withdrawal, unspecified; I42.6 Alcoholic cardiomyopathy; M48.56XA Collapsed vertebra, not elsewhere classified, lumbar region, initial encounter for fracture; D64.9 Anemia, unspecified; D69.6 Thrombocytopenia, unspecified; E78.00 Pure hypercholesterolemia, unspecified; G89.29 Other chronic pain; I11.0 Hypertensive heart disease with heart failure; I50.9 Heart failure, unspecified; J44.9 Chronic obstructive pulmonary disease, unspecified; K70.30 Alcoholic cirrhosis of liver without ascites; M19.90 Unspecified osteoarthritis, unspecified site; M48.04 Spinal stenosis, thoracic region; M48.061 Spinal stenosis, lumbar region without neurogenic claudication; R29.6 Repeated falls; Z20.828 Contact with and (suspected) exposure to other viral communicable diseases; Z59.0 Homelessness; Z86.73 Personal history of transient ischemic attack (TIA), and cerebral infarction without residual deficits; W18.39XA Other fall on same level, initial encounter; Y93.89 Activity, other specified; Y92.89 Other specified places as the place of occurrence of the external cause; Y99.8 Other external cause status
CPT/HCPCS: 36415; 71045; 72131; 72146; 80048; 82040; 82607; 83880; 84145; 85025; 85610; 85730; 87635; 96360; G0378; J1940; Q0162; J2060; J2270; J7030

== ENCOUNTER 2020-08-29 01:25 | Emergency (ER) | payer MEDICARE, MEDICAID ==
[~2020-08-29] VITALS: Ht 152.4 cm; Wt 59.1 kg
[~2020-08-29 01:25] MED LIST changes: -FOLI-17 PO; +FOLI1TAB32 PO
--- NOTE | 2020-08-29 03:26 | NUR ---
ATTEMPTED TO TEACH PT. USE OF INSENTIVE SPIROMETER FOR D/C. PT. STARTED YELLING AT THIS RN "THAT MANAS TOLD ME THAT I NEED TO STAY HERE UNTIL MORNING TIME SO I CAN STAY WARM. I AM TOO COLD TO LEAVE." PT. OFFERED CAB VOUCHER; PT. DECLINED. PT. JUST KEEPS SHOUTING "I HAVE TO STAY HERE UNTIL MORNING I CAN'T LEAVE." SECURITY CALLED TO ESCORT PT. OUT OF ED.
[2020-08-29 03:29] VITALS: BP 121/78
--- NOTE | 2020-08-29 03:29 | NUR ---
PT. IS WEARING SWEAT PANTS, SWEAT SHIRT AND HAS A LARGE COAT. SOCKS PROVIDED. PT. HAS APPROPRIATE SNEAKERS WELL.
== END 2020-08-29 03:31 | disposition home or self-care (01) ==
LOC: ED 01:44
DX: S20.212A Contusion of left front wall of thorax, initial encounter (principal); I11.0 Hypertensive heart disease with heart failure; I50.9 Heart failure, unspecified; J44.9 Chronic obstructive pulmonary disease, unspecified; E78.00 Pure hypercholesterolemia, unspecified; R07.89 Other chest pain; Z86.73 Personal history of transient ischemic attack (TIA), and cerebral infarction without residual deficits; Z87.891 Personal history of nicotine dependence; W01.0XXA Fall on same level from slipping, tripping and stumbling without subsequent striking against object, initial encounter; Y93.89 Activity, other specified; Y92.89 Other specified places as the place of occurrence of the external cause; Y99.8 Other external cause status
CPT/HCPCS: 71046; 93005; 99283

== ENCOUNTER 2020-08-29 04:16 | Emergency (ER) | payer MEDICARE, MEDICAID ==
[~2020-08-29] VITALS: Ht 152.4 cm; Wt 62.9 kg
--- NOTE | 2020-08-29 04:32 | NUR ---
PT ARRIVED BY [facility] WITH COMPLAINT OF SOB. JUST LEFT ER. STATES SHE HAS NO WHERE TO GO. HOMELESS. USUALLY SEEKS HELP OF FAMILY IN [place]. UNABLE TO FILL RX. INCONTINENT OF URINE. POOR HISTORIAN. UNABLE TO DETERMINE WHERE PATIENT NORMALLY STAYS.
== END 2020-08-29 05:45 | disposition home or self-care (01) ==
LOC: ED 05:40
DX: R53.1 Weakness (principal); M25.512 Pain in left shoulder; M25.571 Pain in right ankle and joints of right foot; I10 Essential (primary) hypertension; Z72.9 Problem related to lifestyle, unspecified
CPT/HCPCS: 99283

== ENCOUNTER 2020-08-29 13:13 | Emergency (ER) | payer MEDICARE, MEDICAID ==
[~2020-08-29] VITALS: Ht 152.4 cm; Wt 68.0 kg
--- NOTE | 2020-08-29 14:32 | NUR ---
survey chief: pt from lobby to room 11
--- NOTE | 2020-08-29 15:02 | NUR ---
Connected to all monitors including cardiac.
[2020-08-29] MEDS ORDERED: ACETAMINOPHEN 325 MG TABLET PO ONE (15:30)
[2020-08-29 15:39] VITALS: BP 116/41
== END 2020-08-29 15:43 | disposition home or self-care (01) ==
LOC: ED 15:35
DX: S22.009A Unspecified fracture of unspecified thoracic vertebra, initial encounter for closed fracture (principal); J44.9 Chronic obstructive pulmonary disease, unspecified; I50.9 Heart failure, unspecified; I11.0 Hypertensive heart disease with heart failure; E78.00 Pure hypercholesterolemia, unspecified; Z86.73 Personal history of transient ischemic attack (TIA), and cerebral infarction without residual deficits; X58.XXXA Exposure to other specified factors, initial encounter; Y93.89 Activity, other specified; Y92.89 Other specified places as the place of occurrence of the external cause; Y99.8 Other external cause status
CPT/HCPCS: 93005; 99283

== ENCOUNTER 2020-09-28 11:47 | Emergency (ER) | payer MEDICARE, MEDICAID ==
[~2020-09-28] VITALS: Ht 154.9 cm; Wt 65.0 kg
--- NOTE | 2020-09-28 12:19 | NUR ---
BREAK RN AT BEDSIDE. PATIENT RESTING COMFORTABLY. PATIENT DESAT AT 90% ON RA. 2L NC PATIENT NOW SATING AT 95%. VSS AT THIS TIME
[2020-09-28 12:20] VITALS: BP 107/56
[2020-09-28] MEDS ORDERED: SODIUM CHLORIDE FLUSH 10ML SYR IVF ONE (12:30)
[2020-09-28] MEDS ORDERED: SODIUM CHLORIDE 0.9% 1,000ML IVBOLUS ONE (12:30)
--- NOTE | 2020-09-28 12:33 | NUR ---
TECH AT BEDSIDE TO START IV
[2020-09-28 12:39] LABS: BASOPHILS % (AUTO) 0 % (0-1); EOSINOPHILS % (AUTO) 5 % (1-7); LYMPHOCYTES % (AUTO) 16 % (22-44); MEAN CORPUSCULAR HEMOGLOBIN 33.6 pg (27.0-34.8); MEAN CORPUSCULAR HGB CONC 33.4 g/dL (32.4-35.8); MEAN PLATELET VOLUME 6.6 fL (7.4-10.4); MONOCYTES % (AUTO) 16 % (2-9); NEUTROPHILS % (AUTO) 63 % (42-75); PLATELET COUNT 135 x10^3/uL (130-400); RED BLOOD COUNT 3.56 x10^6/uL (3.82-5.3); RED CELL DISTRIBUTION WIDTH 18.3 % (9.6-15.2)
[2020-09-28 12:40] LABS: MD NO
[2020-09-28 12:51] LABS: ALANINE AMINOTRANSFERASE 32 U/L (12-78); ALBUMIN 1.8 g/dL (3.4-5.0); ANION GAP 5 mmol/L (5-15); CALCIUM 7.5 mg/dL (8.5-10.1); CHLORIDE 111 mmol/L (98-107)
[2020-09-28 12:55] LABS: ALKALINE PHOSPHATASE 222 U/L (45-117); BILIRUBIN,TOTAL 1.4 mg/dL (0.2-1.0); TOTAL PROTEIN 5.7 g/dL (6.4-8.2); TROPONIN I < 0.015 ng/mL (0.000-0.045)
--- NOTE | 2020-09-28 13:14 | NUR ---
REPORT TO TERRY
--- NOTE | 2020-09-28 13:24 | NUR ---
PATIENT RESTING IN GURNEY WITH EYES CLOSED, CONNECTED TO MONITORS, VSS, SIDE RAILS UP X2, CALL LIGHT WITHIN REACH.
--- NOTE | 2020-09-28 15:22 | NUR ---
PATIENT RESTING IN GURNEY WITH EYES CLOSED, RESP EVEN AND UNLABORED, CONNECTED TO MONITOR, VSS, SIDE RAILS UP X2, CALL LIGHT WITHIN REACH. PATIENT MTF.
--- NOTE | 2020-09-28 18:22 | NUR ---
Patient covered in feces and urine when she sat up in [facility], provided clean clothes and shoes to patient. Taxi voucher provided. Patient given discharge instructions and they have confirmed that they understand the instructions. Patient ambulatory with steady gait. NAD, all questions answered appropriately, denies additional needs at this time. No personal belongings left in room after discharge.
== END 2020-09-28 18:23 | disposition home or self-care (01) ==
LOC: ED 12:08
DX: F10.220 Alcohol dependence with intoxication, uncomplicated (principal); R06.89 Other abnormalities of breathing; I11.0 Hypertensive heart disease with heart failure; I50.9 Heart failure, unspecified; J44.9 Chronic obstructive pulmonary disease, unspecified; R94.31 Abnormal electrocardiogram [ECG] [EKG]; Y90.0 Blood alcohol level of less than 20 mg/100 ml
CPT/HCPCS: 36415; 71045; 80053; 80320; 82140; 84484; 85025; 93005; 96360; 99285; J7030; G0480

== ENCOUNTER 2020-09-29 19:40 | Emergency (ER) | payer MEDICARE, MEDICAID ==
[~2020-09-29] VITALS: Ht 157.5 cm; Wt 90.9 kg
[2020-09-29 19:45] VITALS: BP 101/59
== END 2020-09-29 22:20 | disposition home or self-care (01) ==
LOC: ED 20:10
DX: F10.220 Alcohol dependence with intoxication, uncomplicated (principal); R06.02 Shortness of breath; R05 Cough; Y90.0 Blood alcohol level of less than 20 mg/100 ml; R00.0 Tachycardia, unspecified; I11.0 Hypertensive heart disease with heart failure; I50.9 Heart failure, unspecified; J44.9 Chronic obstructive pulmonary disease, unspecified; E78.00 Pure hypercholesterolemia, unspecified; Z86.73 Personal history of transient ischemic attack (TIA), and cerebral infarction without residual deficits
CPT/HCPCS: 71045; 99283